=== PATIENT | female | born 1995 | race African-American/Black ===

== ENCOUNTER 2023-01-31 08:43 | Emergency (ER) | payer SELFPAY | END 2023-01-31 08:48 | disposition left against medical advice (07) | DX: Z53.21 Procedure and treatment not carried out due to patient leaving prior to being seen by health care provider (principal) | CPT/HCPCS: 99199 ==

== ENCOUNTER 2024-08-06 15:29 | Outpatient (CLI) | payer OTHER, SELFPAY ==
--- OUTSIDE RECORDS SUMMARY | 2024-08-06 17:14 | XMS_ITS | Clinical Summary ---
Author Organization [facility], formerly [facility] Address [address] [place] [address] Care Team Providers [employer] Foreperson Name Role Phone No, Physician Primary Care Provider [phone] Allergies Active Allergy Reactions Criticality Noted Date Comments Pollen Extracts Cough,Eye irritation,Redness,Headache,Itching,S hortness of breath,Wheezing High 10/26/2006 Medications albuterol HFA (PROVENTIL HFA,VENTOLIN HFA,PROAIR HFA) 90 mcg/actuation inhaler Inhale 2 puffs every 6 (six) hours as needed 5 Active medroxyPROGESTE Mati (PROVERA) 10 mg tabletIndicatio ns:Menorrhagia with regular cycle,Abnormal uterine bleeding (AUB) Take 1 tablet (10 mg total) by mouth daily for 10 days 30 tablet 11 1 Active topiramate (TOPAMAX) 25 mg tablet Take 1 tablet (25 mg total) by mouth 2 (two) times a day 4 Active hydrocortisone 1 % ointment Apply 1 Application topically 3 (three) times a day as needed for rash 4 Active rizatriptan (MAXALT) 5 mg tablet Take 1 tablet (5 mg total) by mouth once as needed 4 Active sertraline (ZOLOFT) 50 mg tablet Take 1.5 tablets (75 mg total) by mouth daily Active buPROPion XL (WELLBUTRIN XL) 300 mg 24 hr tablet Take 1 tablet (300 mg total) by mouth every morning Active traZODone (DESYREL) 50 mg tablet Take 1 tablet (50 mg total) by mouth nightly as needed for sleep Active gabapentin (NEURONTIN) 100 mg capsule Take 1 capsule (100 mg total) by mouth 3 (three) times a day Active OXcarbazepine (TRILEPTAL) 600 mg tablet Take 1 tablet (600 mg total) by mouth 2 (two) times a day Active Active Problems Problem Noted Date Diagnosed Date Chronic migraine w/o aura w/ o status migrainosus, not intractable 05/15/2024 Pseudopapilledema of both optic discs 05/15/2024 Abnormal uterine bleeding (AUB) 05/30/2021 Encounters Date Type Department Care Team Description 05/20/2024 4:41 PM PROFILER OPERATOR - 05/20/2024 11:59 PM PROFILER OPERATOR Hospital Encounter [facility] ([facility]) [address] [place] [phone] Discharge Disposition: Discharge to home or self care 05/20/2024 4:39 PM PROFILER OPERATOR - 05/20/2024 11:59 PM PROFILER OPERATOR Hospital Encounter [facility] ([facility]) [address] [place] [phone] Discharge Disposition: Discharge to home or self care 05/20/2024 4:37 PM PROFILER OPERATOR - 05/20/2024 11:59 PM PROFILER OPERATOR Hospital Encounter [facility] ([facility]) [address] [place] [address] Discharge Disposition: Discharge to home or self care 05/20/2024 4:36 PM PROFILER OPERATOR - 05/20/2024 11:59 PM PROFILER OPERATOR Hospital Encounter [facility] ([facility]) [address] [place] [phone] Discharge Disposition: Discharge to home or self care 05/15/2024 10:52 AM PROFILER OPERATOR - 05/15/2024 11:59 PM PROFILER OPERATOR Hospital Encounter [facility] ([facility]) [address] [place] [phone] Discharge Disposition: Discharge to home or self care 05/15/2024 10:50 AM PROFILER OPERATOR - 05/15/2024 11:59 PM PROFILER OPERATOR Hospital Encounter [facility] ([facility]) [address] [place] [phone] Discharge Disposition: Discharge to home or self care 05/15/2024 10:41 AM PROFILER OPERATOR - 05/15/2024 11:59 PM PROFILER OPERATOR Hospital Encounter [facility] ([facility]) [address] [place] [phone] Discharge Disposition: Discharge to home or self care 05/14/2024 3:30 PM PROFILER OPERATOR Imaging Exam [facility] [address] [place] [address] [address] [place] [phone] 05/14/2024 3:20 PM PROFILER OPERATOR Imaging Exam [facility] [address] [place] [phone] 05/14/2024 3:10 PM PROFILER OPERATOR Imaging Exam [facility] [address] [place] [phone] 05/14/2024 2:30 PM PROFILER OPERATOR Office Visit [facility] [address] [place] [phone] Lenin Lopez MD Chronic migraine w/o aura w/o status migrainosus, not intractable (Primary Dx); Pseudopapilledema of both optic discs from Last 3 Months Medical History Medical History Date Comments Asthma PE (pulmonary thromboembolism) (HCC) 2016 Family History Medical History Relation Name Comments No Known Problems Father No Known Problems Maternal Grandfather No Known Problems Maternal Grandmother Diabetes Mother Heart attack Mother Heart disease Mother Hypertension Mother Stroke Mother No Known Problems Paternal Grandfather No Known Problems Paternal Grandmother Breast cancer Neg Hx Ovarian cancer Neg Hx Uterine cancer Neg Hx Relation Name Status Comments Father Alive Maternal Grandfather Alive Maternal Grandmother Alive Mother Paternal Grandfather Alive Paternal Grandmother Alive Social History Tobacco Use Types Packs/Day Years Used Date Smoking Tobacco: Never Smokeless Tobacco: Never Alcohol Use Standard Drinks/Week Comments Yes 0 (1 standard drink = 0.6 oz pur e alcohol) Comments No Sex and Gender Information Value Date Recorded Sex Assigned at Not on file Legal Sex Female 9:08 PM PROFILER OPERATOR Gender Identity Not on file Sexual Orientation Not on file Obstetrics History Last Filed Vital Signs Vital Sign Reading Time Taken Comments Blood Pressure 112/76 05/26/2021 10:44 AM PROFILER OPERATOR Pulse 76 05/03/2021 8:40 PM PROFILER OPERATOR Temperature 36.8 C (98.2 F) 05/03/2021 3:57 PM PROFILER OPERATOR Respiratory Rate 18 05/03/2021 8:40 PM PROFILER OPERATOR Oxygen Saturation 100% 05/03/2021 8:40 PM PROFILER OPERATOR Inhaled Oxygen Concentration - - Weight 106.6 kg (235 lb) 05/26/2021 10:44 AM PROFILER OPERATOR Height 180.3 cm (5' 10.98 ) 05/26/2021 10:44 AM PROFILER OPERATOR Body Mass Index 32.79 05/26/2021 10:44 AM PROFILER OPERATOR Plan of Treatment Health Maintenance Due Date Last Done Comments Cervical Cancer Screening 1995 Depression Screening 1995 Hepatitis C Screening 1995 Varicella Vaccines (1 of 2 - 13+ 2-dose series) 08/20/2008 Hepatitis B Screening 08/20/2013 Regular Well Visit/Exam 18-64 08/20/2013 Pneumococcal vaccine <65 (1 of 2 - PCV) 08/20/2014 Influenza Vaccine (#1) 2024 DTaP/Tdap/Td Vaccine (2 - Td or Tdap) 10/03/2029 10/04/2019 HPV Vaccines Aged Out No longer eligi ble based on patient's age to complete this topic Procedures Procedure Name Priority Date/Time Associated Diagnosis Comments NEURO CT OUTSIDE REFERENCE Routine 05/20/2024 4:41 PM PROFILER OPERATOR NEURO MR OUTSIDE REFERENCE Routine 05/20/2024 4:39 PM PROFILER OPERATOR XR TRANSFER OF OUTSIDE FILMS Routine 05/20/2024 4:37 PM PROFILER OPERATOR NEURO MR OUTSIDE REFERENCE Routine 05/20/2024 4:36 PM PROFILER OPERATOR NEURO MR OUTSIDE REFERENCE Routine 05/15/2024 10:52 AM PROFILER OPERATOR NEURO MR OUTSIDE REFERENCE Routine 05/15/2024 10:50 AM PROFILER OPERATOR NEURO MR OUTSIDE REFERENCE Routine 05/15/2024 10:41 AM PROFILER OPERATOR OCT, OPTIC NERVE - OU - BOTH EYES Routine 05/14/2024 3:59 PM PROFILER OPERATOR Pseudopapilledema of both optic discs OCT, RETINA - OU - BOTH EYES Routine 05/14/2024 3:59 PM PROFILER OPERATOR Pseudopapilledema of both optic discs FUNDUS PHOTOS/FAF - OU - BOTH EYES Routine 05/14/2024 2:30 PM PROFILER OPERATOR Pseudopapilledema of both optic discs NEVAREZ VISUAL FIELD - OU - BOTH EYES Routine 05/14/2024 2:30 PM PROFILER OPERATOR Pseudopapilledema of both optic discs from Last 3 Months Results * Neuro CT Outside Reference (05/20/2024 4:41 PM PROFILER OPERATOR) Impressions RAD_PACS_[facility] - 05/20/2024 4:41 PM PROFILER OPERATOR These images are for Reference purposes only and have not been reviewed by [facility]. There will be no report generated by a [facility] Radiologist. Narrative RAD_PACS_BJ - 05/20/2024 4:41 PM PROFILER OPERATOR EXAMINATION: Images For Reference Purposes Only Lenin Lopez MD IMG CT PROCEDURES Fi nal Result [email or web address] * Neuro MR Outside Reference (05/20/2024 4:39 PM PROFILER OPERATOR) Impressions RAD_PACS_[facility] - 05/20/2024 4:39 PM PROFILER OPERATOR These images are for Reference purposes only and have not been reviewed by [facility]. There will be no report generated by a [facility] Radiologist. Narrative RAD_PACS_BJ - 05/20/2024 4:39 PM PROFILER OPERATOR EXAMINATION: Images For Reference Purposes Only Lenin Lopez MD IMG MRI PROCEDURES F inal Result Performing Organization Address [facility] de Phone Number [email or web address] * XR Outside Reference (05/20/2024 4:37 PM PROFILER OPERATOR) Impressions [facility] - 05/20/2024 4:37 PM PROFILER OPERATOR These images are for Reference purposes only and have not been reviewed by [facility]. There will be no report generated by a [facility] Radiologist. Narrative [facility] - 05/20/2024 4:37 PM PROFILER OPERATOR EXAMINATION: Images For Reference Purposes Only Lenin Lopez MD IMG XR PROCEDURES Fi nal Result Performing Organization Address [facility] [place] Phone Number [email or web address] * Neuro MR Outside Reference (05/20/2024 4:36 PM PROFILER OPERATOR) Impressions [facility] - 05/20/2024 4:36 PM PROFILER OPERATOR These images are for Reference purposes only and have not been reviewed by [facility]. There will be no report generated by a [facility] Radiologist. Narrative [facility] - 05/20/2024 4:36 PM PROFILER OPERATOR EXAMINATION: Images For Reference Purposes Only Lenin Lopez MD IMG MRI PROCEDURES F inal Result Performing Organization Address [facility] de Phone Number [email or web address] * Neuro MR Outside Reference (05/15/2024 10:52 AM PROFILER OPERATOR) Impressions [facility] - 05/15/2024 10:52 AM PROFILER OPERATOR These images are for Reference purposes only and have not been reviewed by [facility]. There will be no report generated by a [facility] Radiologist. Narrative [facility] - 05/15/2024 10:52 AM PROFILER OPERATOR EXAMINATION: Images For Reference Purposes Only Lenin Lopez MD IMG MRI PROCEDURES F inal Result Performing Organization Address [facility] de Phone Number [email or web address] * Neuro MR Outside Reference (05/15/2024 10:50 AM PROFILER OPERATOR) Impressions RADHUGH - 05/15/2024 10:50 AM PROFILER OPERATOR These images are for Reference purposes only and have not been reviewed by [facility]. There will be no report generated by a [facility] Radiologist. Narrative RAD_PACAlisa_WALTER - 05/15/2024 10:50 AM PROFILER OPERATOR EXAMINATION: Images For Reference Purposes Only Lenin Lopez MD [facility] MRI PROCEDURES F inal Result Performing Organization Address [facility] de Phone Number [email or web address] * Neuro MR Outside Reference (05/15/2024 10:41 AM PROFILER OPERATOR) Impressions RADITZ_WALTER - 05/15/2024 10:41 AM PROFILER OPERATOR These images are for Reference purposes only and have not been reviewed by [facility]. There will be no report generated by a [facility] Radiologist. Narrative RAD_PACAlisa_DREW - 05/15/2024 10:41 AM PROFILER OPERATOR EXAMINATION: Images For Reference Purposes Only Lenin Lopez MD IMG MRI PROCEDURES F inal Result Performing Organization Address [facility] de Phone Number [email or web address] * OCT, Optic Nerve - OU - Both Eyes (05/14/2024 3:59 PM PROFILER OPERATOR) RNFL OS 95 micrometers CONTINUUM RNFL OD 99 micrometers CONTINUUM Anatomical Region Laterality Modality Head Other Narrative 05/15/2024 9:42 AM PROFILER OPERATOR Right Eye Reliability was good. Average RNFL thickness 99 micrometers. Left Eye Reliability was good. Average RNFL thickness 95 micrometers. Notes No signs of thinning or thickening both eyes (OU) Dali Wilkerson MD OPHTH TOMOGRAPHY Final Resu lt * OCT, Retina - OU - Both Eyes (05/14/2024 3:59 PM PROFILER OPERATOR) Central Macular Thickness OS 266 mircometers CONTINUUM Central Macular Thickness OD 270 micrometers CONTINUUM Anatomical Region Laterality Modality Head Other Narrative 05/15/2024 9:42 AM PROFILER OPERATOR Right Eye Quality was good. Macular thickness was 270 micrometers. Left Eye Quality was good. Macular thickness was 266 mircometers. Notes Normal OCT mac OU GCC without thinning OU; 81/80 us Dali Wilkerson MD OPH TOMOGRAPHY Final Resu lt * Fundus Photos/FAF - OU - Both Eyes (05/14/2024 2:30 PM PROFILER OPERATOR) Anatomical Region Laterality Modality Head Fundus Photograp hy Narrative 05/15/2024 9:42 AM PROFILER OPERATOR Right Eye Quality was good. Left Eye Quality was good. Notes OD crowded optic disc with no edema or pallor, temporal retinal tear with surrounding laser barricade OS crowded optic discs with no edema or pallor Fundus auto fluorescence photography showed no evidence of optic disc drusen in either eye. us Dali Wilkerson MD OPH PHOTOGRAPHY Final Res ult * Nevarez Visual Field - OU - Both Eyes (05/14/2024 2:30 PM PROFILER OPERATOR) Pattern Deviation OS 1.73 CONTINUUM Pattern Deviation OD 1.17 CONTINUUM Mean Deviation OS -1.06 CONTINUUM Mean Deviation OD -1.71 CONTINUUM Anatomical Region Laterality Modality Head Other Narrative 05/15/2024 9:41 AM PROFILER OPERATOR Right Eye Fixation was good. Cooperation was good. Reliability was good. Mean Deviation was -1.71. Pattern Deviation was 1.17. Left Eye Fixation was good. Cooperation was good. Reliability was good. Mean Deviation was -1.06. Pattern Deviation was 1.73. Notes Full OU us Dali Wilkerson MD OPH VISUAL FIELD Final Re sult from Last 3 Months Insurance [facility] [employer] Care Teams [employer] Foreperson Relationship Specialty Start Date End Date No, Physician PCP - General 10/05/19
--- OUTSIDE RECORDS SUMMARY | 2024-08-06 17:14 | XMS_ITS | Patient Health Summary ---
Author Organization [facility] Address [address] [place] [address] Care Team Providers Care Major Gifts Officer Name Role Phone Zee Cruz IAN-OILER BANDER Primary Care Provider + Note from [facility],non-owned Affiliates and Associated Physician Practices is amultiple site organization consisting of ambulatory clinics and hospital sitesin [place], [place], [place] and [place]. This disclosure is being madepursuant to the Care Everywhere program and may not contain all information available regarding this patient. Last updated 18.[facility] Allergies * Seasonal(Cough,Eye Discomfort,Eye Itching,Eye Redness,Headache,Itching, Shortness of Breath,Wheezing) -High Criticality Medications * Be aware that medications may not be up to date on this document. Alwaysverify current medications with the patient. * rizatriptan (Maxalt) 5 MG tablet(Started 09/26/2023) TAKE 1 TABLET BY MOUTH 1 TIME AT EARLY ONSET OF MIGRAINE. MAY REPEAT 1 TIME AFTER 2 HOURS NEEDED 11 refills by 09/25/2024 * fluticasone propionate (Flonase) 50 MCG/ACT nasal spray(Started 01/05/2023) SHAKE LIQUID AND USE 1 SPRAY IN EACH NOSTRIL TWICE DAILY * hydrocortisone (Hytone) 1 % ointment(Started 09/17/2023) APPLY TOPICALLY TO THE AFFECTED AREA THREE TIMES DAILY NEEDED FOR RASH * Mirena, 52 MG, 20 MCG/DAY IUD(Started 06/11/2023) * acetaZOLAMIDE ER 12hr (Diamox Sequel) 500 MG capsule(Started 01/01/2024) Take 1 (one) capsule by mouth 2 times daily 11 refills by 12/31/2024 * doxycycline hyclate 100 MG tablet(Started 02/07/2024) * buPROPion XL 24hr (Wellbutrin-XL) 300 MG tablet 1 tablet in the morning Orally Once a day for 90 days * sertraline (Zoloft) 50 MG tablet 1.5 tablet Oral Once a day for 90 days * traZODone (Desyrel) 50 MG tablet(Started 10/03/2023) 1 tablet at bedtime as needed Oral Once a day for 90 days * albuterol HFA (Proventil; Ventolin; Proair) 108 (90 Base) MCG/ACT inhaler (Started 03/04/2024) * Levonorgestrel (MIRENA, 52 MG, IU)(Started 10/03/2023) MIRENA 21 MCG/24 HR (UP TO 8 YEARS) 52 MG INTRAUTERINE DEVICE * valACYclovir (Valtrex) 500 MG tablet(Started 10/03/2023) Oral * fluticasone diskus (Flovent Diskus) 50 MCG/ACT inhaler(Started 10/03/2023) Inhalation * topiramate (Topamax) 25 MG tablet(Started 04/14/2024) TAKE 1 TABLET BY MOUTH TWICE DAILY 3 refills by 04/14/2025 Active Problems No known active problems Social History Tobacco Use Types Packs/Day Years Used Date Smoking Tobacco: Never Smokeless Tobacco: Never Tobacco Cessation:Counseling Given: Not Answered Alcohol Use Standard Drinks/Week Comments Yes 0 (1 standard drink = 0.6 oz pur e alcohol) Occassionally AUDIT-C Answer Date Recorded Q1: How often do you have a drink containing alc ohol? 2-4 times a month 12/28/2023 Average Number of Drinks Not on file 024 Frequency of Binge Drinking Not on file 12/03 Sex and Gender Information Value Date Recorded Sex Assigned at Female 12/17/2023 7:36 AM CDT Gender Identity Female 12/17/2023 7:36 AM CDT Sexual Orientation Straight 12/17/2023 7: 36 AM CDT Last Filed Vital Signs Vital Sign Reading Time Taken Comments Blood Pressure 154/95 01/01/2024 6:54 AM CDT Pulse 65 01/01/2024 6:54 AM CDT Temperature 36.4 C (97.6 F) 01/01/2024 6:54 AM CDT Respiratory Rate 18 01/01/2024 6:54 AM CDT Oxygen Saturation 100% 01/01/2024 6:54 AM CDT Inhaled Oxygen Concentration - - Weight 86.2 kg (190 lb) 01/01/2024 6:54 AM CDT Height 180.3 cm (5' 11 ) 01/01/2024 6:54 AM CDT Body Mass Index 26.5 01/01/2024 6:54 AM CDT Procedures * OPTIC NERVE ANALYSIS OCT(Performed 03/12/2024) Performed for IIH (idiopathic intracranial hypertension) * NANCE AUTO VISUAL FIELD EXTENDED(Performed 03/12/2024) Performed for IIH (idiopathic intracranial hypertension) * FUNDUS PHOTO BOTH EYES(Performed 02/20/2024) Performed for IIH (idiopathic intracranial hypertension) * RETINAL ANALYSIS OCT(Performed 02/20/2024) Performed for IIH (idiopathic intracranial hypertension) * NANCE AUTO VISUAL FIELD EXTENDED(Performed 02/20/2024) Performed for Papilledema * MRI ANGIO BRAIN VENOUS WWO CONT(Performed 02/09/2024) Performed for Papilledema * MRI BRAIN WWO CONTRAST(Performed 02/09/2024) Performed for Papilledema * MRI ORBITS OR FACE WWO CONTRAST(Performed 02/09/2024) Performed for Papilledema * CREATININE - POCT INTERFACED(Performed 02/09/2024) * CBC W AUTO DIFFERENTIAL(Performed 01/01/2024) * COMPREHENSIVE METABOLIC PANEL(Performed 01/01/2024) * CELL COUNT W DIFFERENTIAL CSF(Performed 12/28/2023) Performed for Papilledema * PROTEIN CSF(Performed 12/28/2023) Performed for Papilledema * GLUCOSE CSF(Performed 12/28/2023) Performed for Papilledema * FL LUMBAR PUNCTURE(Performed 12/28/2023) Performed for Papilledema * HCG URINE QUALITATIVE - POCT (IP) INTERFACED(Performed 12/28/2023) * HCG URINE QUAL POCT NOTIFICATION(Performed 12/28/2023) Performed for Preop examination * PROPHYLAXIS RETINA DETACH PHOTOCOAG OS(Performed 12/21/2023) 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 * PROPHYLAXIS RETINA DETACH PHOTOCOAG OD(Performed 12/13/2023) 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, Lattice degeneration of peripheral retina, bilateral * RETINAL ANALYSIS OCT(Performed 12/13/2023) Performed for Retinal tear of right eye * MRI ORBITS OR FACE WWO CONTRAST(Performed 10/27/2023) Performed for Trigeminal neuralgia, Other complicated headache syndrome * MRI ANGIO BRAIN ARTERIAL WO CONT(Performed 10/27/2023) Performed for Trigeminal neuralgia, Other complicated headache syndrome * MRI BRAIN WWO CONTRAST(Performed 10/27/2023) Performed for Trigeminal neuralgia, Other complicated headache syndrome * CREATININE - POCT INTERFACED(Performed 10/27/2023) * CT HEAD WO CONTRAST(Performed 06/05/2022) Performed for Other complicated headache syndrome * XR LUMBAR SPINE 2 OR 3VW(Performed 04/13/2022) Performed for Low back pain, unspecified back pain laterality, unspecified chronicity, unspecified whether sciatica present Results * OPTIC NERVE ANALYSIS OCT (03/12/2024 9:18 AM CDT) Anatomical Region Laterality Modality Head External-Camera Photography Narrative 03/12/2024 10:44 AM CDT Images from the original result were not included. Justin Palma MD OPHTHALMOLOGY SCHED ORD W PACS * NANCE AUTO VISUAL FIELD EXTENDED (03/12/2024 9:18 AM CDT) Anatomical Region Laterality Modality Head External-Camera Photography Justin Palma MD OPHTHALMOLOGY SCHED ORD W PACS * FUNDUS PHOTO BOTH EYES (02/20/2024 12:32 PM CDT) Anatomical Region Laterality Modality Head External-Camera Photography Narrative 02/20/2024 12:44 PM CDT Images from the original result were not included. Fundus photos: No papilledema, Len's lines, high water qu[place] seen OU. Retinopexy seen far temporal periphery OD. Justin Palma MD OPHTHALMOLOGY SCHED ORD W PACS * RETINAL ANALYSIS OCT (02/20/2024 12:32 PM CDT) Anatomical Region Laterality Modality Head External-Camera Photography Narrative 02/20/2024 12:59 PM CDT Images from the original result were not included. OCT [place] Nerve - no significant swelling/edema or thinning of RNFL OU. Avg 102 OD, 103 OS. OCT [place] Macula - normal retinal layers without disruption OU Justin Palma MD OPHTHALMOLOGY SCHED ORD W PACS * NANCE AUTO VISUAL FIELD EXTENDED (02/20/2024 10:20 AM CDT) Anatomical Region Laterality Modality Head External-Camera Photography Narrative 02/20/2024 1:12 PM CDT Images from the original result were not included. HVF 24-2 02/20/24 Superonasal defect OD. Full field OS. Good reliability OU. Foveal threshold 36 dB OD, 37 dB OS. VFI 93% OD, 97% OS. MD -2.85 OD, -1.95 OS. Justin Palma MD OPHTHALMOLOGY SCHED ORD W PACS * MRI ANGIO BRAIN VENOUS WWO CONT (02/09/2024 2:00 PM CDT) Anatomical Region Laterality Modality Head Magnetic Resonan ce 02/11/2024 1:30 PM CDT Impressions 02/11/2024 10:08 PM CDT IMPRESSION: Compared to the prior MRI from 10/27/2023: 1.No significant change in the scan features compared to the prior. 2.No evidence of acute intracranial findings or abnormal enhancement. 3.No acute MRI findings are identified in the orbits. 4.The right transverse and sigmoid sinuses and the right internal jugular vein are dominant. The left transverse and sigmoid sinuses and the left internal jugular vein are nondominant and small in caliber. There is mild to moderate stenosis of the proximal and distal aspects of the nondominant left transverse sinus. 5.Considering the recent lumbar puncture demonstrating elevated intracranial hypertension, patient's symptoms, and the presence of low-lying cerebellar tonsils, and the presence of reduced caliber of the left transverse sinus with mild proximal and distal stenosis, the overall findings are concerning for idiopathic intracranial hypertension, (IIH). Clinical correlation is recommended. 6.No evidence of dural venous sinus thrombosis. 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 Technologist Note: None. Additional: None. 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 2.MRI of the orbits was performed prior to and following the uneventful administration of 10 mL intravenous GADAVIST contrast according to standard protocol. 3.MRV of the head was performed utilizing contrast enhanced time-resolved technique after the uneventful administration of 10 mL GADAVIST intravenous gadolinium contrast. COMPARISON: MRI of the brain, orbits, and MRV from 10/27/2023. FINDINGS: Brain: Small linear focus of susceptibility artifacts in the medial anterior right parietal region, (series 9, image 36), correlates with a small developmental venous anomaly, a normal variant. Otherwise, no evidence of acute or chronic hemorrhage is identified. No evidence of acute cerebral infarction is seen. The ventricles are of stable size, shape, and morphology. A tiny septum pellucidum is present. No mass effect or midline shift is seen. Trace periventricular white matter FLAIR hyperintensity is a nonspecific finding. A small developmental venous anomaly is noted in the medial anterior parasagittal right parietal lobe, a normal variant, grossly similar to the prior. There is a smaller developmental venous anomaly in the left cerebellar hemisphere posterior lateral aspect. No enhancing lesions are otherwise identified. The pituitary height measures approximately 5.4 mm, within normal limits. The corpus callosum and sella appear normal and stable compared to the prior. Borderline low-lying cerebellar tonsils approximately 2 mm below the level of the foramen magnum, resulting in mild crowding at the level of the foramen magnum, likely representing mild cerebellar ectopia, grossly unchanged from prior. The posterior fossa, brainstem, and craniocervical junction appear otherwise grossly unremarkable. The visualized portions of the mastoids appear normal. Normal flow voids are demonstrated in the carotid arteries and basilar artery. The calvarium and visualized cervical spine appear normal. Orbits: The globes and extraocular muscles appear normal. The lacrimal glands appear normal. Mildly dilated optic nerve sheaths. The optic nerves are symmetric in size and signal. No abnormal enhancement is identified in either optic nerve. The optic chiasm and suprasellar cistern appear normal. Meckel's cave and the cavernous sinuses appear normal. There is a mucous retention cyst in the left maxillary sinus, grossly similar to prior. There is a smaller mucous retention cyst in the right maxillary sinus, grossly similar or slightly decreased compared to prior. Trace mucosal thickening in the ethmoid air cells. Mild hypertrophy of the inferior turbinates, right more than left. There is a small small focus of T2 hyperintensity adjacent to the left middle turbinate, (series 12, image 5), and appears abutting the nasal septum and the inferior turbinate as well. Venographic findings: The right transverse and sigmoid sinuses and the right internal jugular vein are dominant. The left transverse and sigmoid sinuses and the left internal jugular vein are nondominant and small in caliber. There is mild to moderate stenosis of the proximal and distal aspects of the nondominant left transverse sinus. The dural sinuses appear otherwise grossly normal without evidence of thrombosis. The internal cerebral veins, veins of J Luis, and visible portions of the internal jugular veins appear otherwise grossly normal without evidence of thrombosis. 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 Technologist Note: None. Additional: None. 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 2.MRI of the orbits was performed prior to and following the uneventful administration of 10 mL intravenous GADAVIST contrast according tostandard protocol. 3.MRV of the head was performed utilizing contrast enhancedtime-resolved technique after the uneventful administration of 10 mL GADAVISTintravenous gadolinium contrast. COMPARISON: MRI of the brain, orbits, and MRV from 10/27/2023. FINDINGS: Brain: Small linear focus of susceptibility artifacts in the medial anteriorright parietal region, (series 9, image 36), correlates with a small developmental venous anomaly, a normal variant. Otherwise, no evidenceof acute or chronic hemorrhage is identified. No evidence of acute cerebral infarction is seen. The ventricles are of stable size, shape, and morphology. A tiny septum pellucidum is present. No mass effect ormidline shift is seen. Trace periventricular white matter FLAIR hyperintensity nicholas nonspecific finding. A small developmental venous anomaly is noted inthe medial anterior parasagittal right parietal lobe, a normal variant,grossly similar to the prior. There is a smaller developmental venous anomaly in the left cerebellar hemisphere posterior lateral aspect. No enhancing lesions are otherwise identified. The pituitary height measures approximately 5.4 mm, within normal limits. The corpus callosum andsella appear normal and stable compared to the prior. Borderline low-lying cerebellar tonsils approximately 2 mm below the level of the foramen magnum, resulting in mild crowding at the level of the foramen magnum, likely representing mild cerebellar ectopia, grossly unchanged fromprior. The posterior fossa, brainstem, and craniocervical junction appear otherwise grossly unremarkable. The visualized portions of the mastoids appear normal. Normal flow voids are demonstrated in the carotid arteries and basilar artery. Thecalvarium and visualized cervical spine appear normal. Orbits: The globes and extraocular muscles appear normal. The lacrimal glands appear normal. Mildly dilated optic nerve sheaths. The optic nerves are symmetric in size and signal. No abnormal enhancement is identified in either optic nerve. The optic chiasm and suprasellar cistern appearnormal. Meckel's cave and the cavernous sinuses appear normal. There is a mucous retention cyst in the left maxillary sinus, grossly similar to prior. There is a smaller mucous retention cyst in the right maxillary sinus, grossly similar or slightly decreased compared toprior. Trace mucosal thickening in the ethmoid air cells. Mild hypertrophy ofthe inferior turbinates, right more than left. There is a small small focusof T2 hyperintensity adjacent to the left middle turbinate, (series 12,image 5), and appears abutting the nasal septum and the inferior turbinate as well. Venographic findings: The right transverse and sigmoid sinuses and the right internal jugular vein are dominant. The left transverse and sigmoid sinuses and the left internal jugular vein are nondominant and small in caliber. There ismild to moderate stenosis of the proximal and distal aspects of thenondominant left transverse sinus. The dural sinuses appear otherwise grossly normal without evidence of thrombosis. The internal cerebral veins, veins of J Luis, and visible portions of the internal jugular veins appearotherwise grossly normal without evidence of thrombosis. IMPRESSION: Compared to the prior MRI from 10/27/2023: 1.No significant change in the scan features compared to the prior. 2.No evidence of acute intracranial findings or abnormal enhancement. 3.No acute MRI findings are identified in the orbits. 4.The right transverse and sigmoid sinuses and the right internaljugular vein are dominant. The left transverse and sigmoid sinuses and the left internal jugular vein are nondominant and small in caliber. There ismild to moderate stenosis of the proximal and distal aspects of thenondominant left transverse sinus. 5.Considering the recent lumbar puncture demonstrating elevated intracranial hypertension, patient's symptoms, and the presence of low-lying cerebellar tonsils, and the presence of reduced caliber of the left transverse sinus with mild proximal and distal stenosis, theoverall findings are concerning for idiopathic intracranial hypertension, (IIH). Clinical correlation is recommended. 6.No evidence of dural venous sinus thrombosis. > Interpreting Provider: Suresh Holt MD on 02/11/2024 10:08 PM Justin Palma MD MR ORDERABLES * MRI BRAIN WWO CONTRAST (02/09/2024 1:55 PM CDT) Only the most recent of2 resultswithin the time period is included. Anatomical Region Laterality Modality Head Magnetic Resonan ce 02/11/2024 1:30 PM CDT Impressions 02/11/2024 10:08 PM CDT IMPRESSION: Compared to the prior MRI from 10/27/2023: 1.No significant change in the scan features compared to the prior. 2.No evidence of acute intracranial findings or abnormal enhancement. 3.No acute MRI findings are identified in the orbits. 4.The right transverse and sigmoid sinuses and the right internal jugular vein are dominant. The left transverse and sigmoid sinuses and the left internal jugular vein are nondominant and small in caliber. There is mild to moderate stenosis of the proximal and distal aspects of the nondominant left transverse sinus. 5.Considering the recent lumbar puncture demonstrating elevated intracranial hypertension, patient's symptoms, and the presence of low-lying cerebellar tonsils, and the presence of reduced caliber of the left transverse sinus with mild proximal and distal stenosis, the overall findings are concerning for idiopathic intracranial hypertension, (IIH). Clinical correlation is recommended. 6.No evidence of dural venous sinus thrombosis. 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 Technologist Note: None. Additional: None. 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 2.MRI of the orbits was performed prior to and following the uneventful administration of 10 mL intravenous GADAVIST contrast according to standard protocol. 3.MRV of the head was performed utilizing contrast enhanced time-resolved technique after the uneventful administration of 10 mL GADAVIST intravenous gadolinium contrast. COMPARISON: MRI of the brain, orbits, and MRV from 10/27/2023. FINDINGS: Brain: Small linear focus of susceptibility artifacts in the medial anterior right parietal region, (series 9, image 36), correlates with a small developmental venous anomaly, a normal variant. Otherwise, no evidence of acute or chronic hemorrhage is identified. No evidence of acute cerebral infarction is seen. The ventricles are of stable size, shape, and morphology. A tiny septum pellucidum is present. No mass effect or midline shift is seen. Trace periventricular white matter FLAIR hyperintensity is a nonspecific finding. A small developmental venous anomaly is noted in the medial anterior parasagittal right parietal lobe, a normal variant, grossly similar to the prior. There is a smaller developmental venous anomaly in the left cerebellar hemisphere posterior lateral aspect. No enhancing lesions are otherwise identified. The pituitary height measures approximately 5.4 mm, within normal limits. The corpus callosum and sella appear normal and stable compared to the prior. Borderline low-lying cerebellar tonsils approximately 2 mm below the level of the foramen magnum, resulting in mild crowding at the level of the foramen magnum, likely representing mild cerebellar ectopia, grossly unchanged from prior. The posterior fossa, brainstem, and craniocervical junction appear otherwise grossly unremarkable. The visualized portions of the mastoids appear normal. Normal flow voids are demonstrated in the carotid arteries and basilar artery. The calvarium and visualized cervical spine appear normal. Orbits: The globes and extraocular muscles appear normal. The lacrimal glands appear normal. Mildly dilated optic nerve sheaths. The optic nerves are symmetric in size and signal. No abnormal enhancement is identified in either optic nerve. The optic chiasm and suprasellar cistern appear normal. Meckel's cave and the cavernous sinuses appear normal. There is a mucous retention cyst in the left maxillary sinus, grossly similar to prior. There is a smaller mucous retention cyst in the right maxillary sinus, grossly similar or slightly decreased compared to prior. Trace mucosal thickening in the ethmoid air cells. Mild hypertrophy of the inferior turbinates, right more than left. There is a small small focus of T2 hyperintensity adjacent to the left middle turbinate, (series 12, image 5), and appears abutting the nasal septum and the inferior turbinate as well. Venographic findings: The right transverse and sigmoid sinuses and the right internal jugular vein are dominant. The left transverse and sigmoid sinuses and the left internal jugular vein are nondominant and small in caliber. There is mild to moderate stenosis of the proximal and distal aspects of the nondominant left transverse sinus. The dural sinuses appear otherwise grossly normal without evidence of thrombosis. The internal cerebral veins, veins of J Luis, and visible portions of the internal jugular veins appear otherwise grossly normal without evidence of thrombosis. 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 Technologist Note: None. Additional: None. 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 2.MRI of the orbits was performed prior to and following the uneventful administration of 10 mL intravenous GADAVIST contrast according tostandard protocol. 3.MRV of the head was performed utilizing contrast enhancedtime-resolved technique after the uneventful administration of 10 mL GADAVISTintravenous gadolinium contrast. COMPARISON: MRI of the brain, orbits, and MRV from 10/27/2023. FINDINGS: Brain: Small linear focus of susceptibility artifacts in the medial anteriorright parietal region, (series 9, image 36), correlates with a small developmental venous anomaly, a normal variant. Otherwise, no evidenceof acute or chronic hemorrhage is identified. No evidence of acute cerebral infarction is seen. The ventricles are of stable size, shape, and morphology. A tiny septum pellucidum is present. No mass effect ormidline shift is seen. Trace periventricular white matter FLAIR hyperintensity nicholas nonspecific finding. A small developmental venous anomaly is noted inthe medial anterior parasagittal right parietal lobe, a normal variant,grossly similar to the prior. There is a smaller developmental venous anomaly in the left cerebellar hemisphere posterior lateral aspect. No enhancing lesions are otherwise identified. The pituitary height measures approximately 5.4 mm, within normal limits. The corpus callosum andsella appear normal and stable compared to the prior. Borderline low-lying cerebellar tonsils approximately 2 mm below the level of the foramen magnum, resulting in mild crowding at the level of the foramen magnum, likely representing mild cerebellar ectopia, grossly unchanged fromprior. The posterior fossa, brainstem, and craniocervical junction appear otherwise grossly unremarkable. The visualized portions of the mastoids appear normal. Normal flow voids are demonstrated in the carotid arteries and basilar artery. Thecalvarium and visualized cervical spine appear normal. Orbits: The globes and extraocular muscles appear normal. The lacrimal glands appear normal. Mildly dilated optic nerve sheaths. The optic nerves are symmetric in size and signal. No abnormal enhancement is identified in either optic nerve. The optic chiasm and suprasellar cistern appearnormal. Meckel's cave and the cavernous sinuses appear normal. There is a mucous retention cyst in the left maxillary sinus, grossly similar to prior. There is a smaller mucous retention cyst in the right maxillary sinus, grossly similar or slightly decreased compared toprior. Trace mucosal thickening in the ethmoid air cells. Mild hypertrophy ofthe inferior turbinates, right more than left. There is a small small focusof T2 hyperintensity adjacent to the left middle turbinate, (series 12,image 5), and appears abutting the nasal septum and the inferior turbinate as well. Venographic findings: The right transverse and sigmoid sinuses and the right internal jugular vein are dominant. The left transverse and sigmoid sinuses and the left internal jugular vein are nondominant and small in caliber. There ismild to moderate stenosis of the proximal and distal aspects of thenondominant left transverse sinus. The dural sinuses appear otherwise grossly normal without evidence of thrombosis. The internal cerebral veins, veins of J Luis, and visible portions of the internal jugular veins appearotherwise grossly normal without evidence of thrombosis. IMPRESSION: Compared to the prior MRI from 10/27/2023: 1.No significant change in the scan features compared to the prior. 2.No evidence of acute intracranial findings or abnormal enhancement. 3.No acute MRI findings are identified in the orbits. 4.The right transverse and sigmoid sinuses and the right internaljugular vein are dominant. The left transverse and sigmoid sinuses and the left internal jugular vein are nondominant and small in caliber. There ismild to moderate stenosis of the proximal and distal aspects of thenondominant left transverse sinus. 5.Considering the recent lumbar puncture demonstrating elevated intracranial hypertension, patient's symptoms, and the presence of low-lying cerebellar tonsils, and the presence of reduced caliber of the left transverse sinus with mild proximal and distal stenosis, theoverall findings are concerning for idiopathic intracranial hypertension, (IIH). Clinical correlation is recommended. 6.No evidence of dural venous sinus thrombosis. > Interpreting Provider: Suresh Holt MD on 02/11/2024 10:08 PM Justin Palma MD MR ORDERABLES * MRI ORBITS OR FACE WWO CONTRAST (02/09/2024 1:54 PM CDT) Only the most recent of2 resultswithin the time period is included. Anatomical Region Laterality Modality Head Magnetic Resonan ce 02/11/2024 1:30 PM CDT Impressions 02/11/2024 10:08 PM CDT IMPRESSION: Compared to the prior MRI from 10/27/2023: 1.No significant change in the scan features compared to the prior. 2.No evidence of acute intracranial findings or abnormal enhancement. 3.No acute MRI findings are identified in the orbits. 4.The right transverse and sigmoid sinuses and the right internal jugular vein are dominant. The left transverse and sigmoid sinuses and the left internal jugular vein are nondominant and small in caliber. There is mild to moderate stenosis of the proximal and distal aspects of the nondominant left transverse sinus. 5.Considering the recent lumbar puncture demonstrating elevated intracranial hypertension, patient's symptoms, and the presence of low-lying cerebellar tonsils, and the presence of reduced caliber of the left transverse sinus with mild proximal and distal stenosis, the overall findings are concerning for idiopathic intracranial hypertension, (IIH). Clinical correlation is recommended. 6.No evidence of dural venous sinus thrombosis. 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 Technologist Note: None. Additional: None. 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 2.MRI of the orbits was performed prior to and following the uneventful administration of 10 mL intravenous GADAVIST contrast according to standard protocol. 3.MRV of the head was performed utilizing contrast enhanced time-resolved technique after the uneventful administration of 10 mL GADAVIST intravenous gadolinium contrast. COMPARISON: MRI of the brain, orbits, and MRV from 10/27/2023. FINDINGS: Brain: Small linear focus of susceptibility artifacts in the medial anterior right parietal region, (series 9, image 36), correlates with a small developmental venous anomaly, a normal variant. Otherwise, no evidence of acute or chronic hemorrhage is identified. No evidence of acute cerebral infarction is seen. The ventricles are of stable size, shape, and morphology. A tiny septum pellucidum is present. No mass effect or midline shift is seen. Trace periventricular white matter FLAIR hyperintensity is a nonspecific finding. A small developmental venous anomaly is noted in the medial anterior parasagittal right parietal lobe, a normal variant, grossly similar to the prior. There is a smaller developmental venous anomaly in the left cerebellar hemisphere posterior lateral aspect. No enhancing lesions are otherwise identified. The pituitary height measures approximately 5.4 mm, within normal limits. The corpus callosum and sella appear normal and stable compared to the prior. Borderline low-lying cerebellar tonsils approximately 2 mm below the level of the foramen magnum, resulting in mild crowding at the level of the foramen magnum, likely representing mild cerebellar ectopia, grossly unchanged from prior. The posterior fossa, brainstem, and craniocervical junction appear otherwise grossly unremarkable. The visualized portions of the mastoids appear normal. Normal flow voids are demonstrated in the carotid arteries and basilar artery. The calvarium and visualized cervical spine appear normal. Orbits: The globes and extraocular muscles appear normal. The lacrimal glands appear normal. Mildly dilated optic nerve sheaths. The optic nerves are symmetric in size and signal. No abnormal enhancement is identified in either optic nerve. The optic chiasm and suprasellar cistern appear normal. Meckel's cave and the cavernous sinuses appear normal. There is a mucous retention cyst in the left maxillary sinus, grossly similar to prior. There is a smaller mucous retention cyst in the right maxillary sinus, grossly similar or slightly decreased compared to prior. Trace mucosal thickening in the ethmoid air cells. Mild hypertrophy of the inferior turbinates, right more than left. There is a small small focus of T2 hyperintensity adjacent to the left middle turbinate, (series 12, image 5), and appears abutting the nasal septum and the inferior turbinate as well. Venographic findings: The right transverse and sigmoid sinuses and the right internal jugular vein are dominant. The left transverse and sigmoid sinuses and the left internal jugular vein are nondominant and small in caliber. There is mild to moderate stenosis of the proximal and distal aspects of the nondominant left transverse sinus. The dural sinuses appear otherwise grossly normal without evidence of thrombosis. The internal cerebral veins, veins of J Luis, and visible portions of the internal jugular veins appear otherwise grossly normal without evidence of thrombosis. 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 Technologist Note: None. Additional: None. 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 2.MRI of the orbits was performed prior to and following the uneventful administration of 10 mL intravenous GADAVIST contrast according tostandard protocol. 3.MRV of the head was performed utilizing contrast enhancedtime-resolved technique after the uneventful administration of 10 mL GADAVISTintravenous gadolinium contrast. COMPARISON: MRI of the brain, orbits, and MRV from 10/27/2023. FINDINGS: Brain: Small linear focus of susceptibility artifacts in the medial anteriorright parietal region, (series 9, image 36), correlates with a small developmental venous anomaly, a normal variant. Otherwise, no evidenceof acute or chronic hemorrhage is identified. No evidence of acute cerebral infarction is seen. The ventricles are of stable size, shape, and morphology. A tiny septum pellucidum is present. No mass effect ormidline shift is seen. Trace periventricular white matter FLAIR hyperintensity nicholas nonspecific finding. A small developmental venous anomaly is noted inthe medial anterior parasagittal right parietal lobe, a normal variant,grossly similar to the prior. There is a smaller developmental venous anomaly in the left cerebellar hemisphere posterior lateral aspect. No enhancing lesions are otherwise identified. The pituitary height measures approximately 5.4 mm, within normal limits. The corpus callosum andsella appear normal and stable compared to the prior. Borderline low-lying cerebellar tonsils approximately 2 mm below the level of the foramen magnum, resulting in mild crowding at the level of the foramen magnum, likely representing mild cerebellar ectopia, grossly unchanged fromprior. The posterior fossa, brainstem, and craniocervical junction appear otherwise grossly unremarkable. The visualized portions of the mastoids appear normal. Normal flow voids are demonstrated in the carotid arteries and basilar artery. Thecalvarium and visualized cervical spine appear normal. Orbits: The globes and extraocular muscles appear normal. The lacrimal glands appear normal. Mildly dilated optic nerve sheaths. The optic nerves are symmetric in size and signal. No abnormal enhancement is identified in either optic nerve. The optic chiasm and suprasellar cistern appearnormal. Meckel's cave and the cavernous sinuses appear normal. There is a mucous retention cyst in the left maxillary sinus, grossly similar to prior. There is a smaller mucous retention cyst in the right maxillary sinus, grossly similar or slightly decreased compared toprior. Trace mucosal thickening in the ethmoid air cells. Mild hypertrophy ofthe inferior turbinates, right more than left. There is a small small focusof T2 hyperintensity adjacent to the left middle turbinate, (series 12,image 5), and appears abutting the nasal septum and the inferior turbinate as well. Venographic findings: The right transverse and sigmoid sinuses and the right internal jugular vein are dominant. The left transverse and sigmoid sinuses and the left internal jugular vein are nondominant and small in caliber. There ismild to moderate stenosis of the proximal and distal aspects of thenondominant left transverse sinus. The dural sinuses appear otherwise grossly normal without evidence of thrombosis. The internal cerebral veins, veins of J Luis, and visible portions of the internal jugular veins appearotherwise grossly normal without evidence of thrombosis. IMPRESSION: Compared to the prior MRI from 10/27/2023: 1.No significant change in the scan features compared to the prior. 2.No evidence of acute intracranial findings or abnormal enhancement. 3.No acute MRI findings are identified in the orbits. 4.The right transverse and sigmoid sinuses and the right internaljugular vein are dominant. The left transverse and sigmoid sinuses and the left internal jugular vein are nondominant and small in caliber. There ismild to moderate stenosis of the proximal and distal aspects of thenondominant left transverse sinus. 5.Considering the recent lumbar puncture demonstrating elevated intracranial hypertension, patient's symptoms, and the presence of low-lying cerebellar tonsils, and the presence of reduced caliber of the left transverse sinus with mild proximal and distal stenosis, theoverall findings are concerning for idiopathic intracranial hypertension, (IIH). Clinical correlation is recommended. 6.No evidence of dural venous sinus thrombosis. > Interpreting Provider: Suresh Holt MD on 02/11/2024 10:08 PM Justin Palma MD MR ORDERABLES * CREATININE - POCT INTERFACED (02/09/2024 12:31 PM CDT) Only the most recent of2 resultswithin the time period is included. Creatinine POCT 0.58 0.30 - 1.30 mg/dL 02/09/2024 12:58 PM [facility] Comment:Range ok for MRI eGFR >90 >=90 mL/min/1.7 3 m2 02/09/2024 12:58 PM [facility] Blood BLOOD SPECIMEN / Unknown 02/09/2024 12:31 PM CDT 02/09/2024 12:58 PM CDT Justin Palma MD LAB - POINT OF CARE ORDERABLES [facility] [address] [place] [address], [facility] [phone] * (ABNORMAL) CBC W AUTO DIFFERENTIAL (01/01/2024 7:23 AM CDT) [facility] WBC 7.7 4.0 - 10.7 x10E9/L 01/01/2024 7:39 AM [facility] RBC Count 4.88 3.90 - 5.20 x10E12/L 01/01/2024 7:39 AM [facility] Hemoglobin 12.6 11.9 - 15.8 g/dL 01/01/2024 7:39 AM [facility] Hematocrit 39.0 34.8 - 46.1 % 01/01/2024 7:39 AM [facility] MCV 79.9(L) 80.0 - 98.0 fL 01/01/2024 7:39 AM [facility] MCH 25.8(L) 26.7 - 33.6 pg 01/01/2024 7:39 AM [facility] MCHC 32.3 31.7 - 36.3 g/dL 01/01/2024 7:39 AM [facility] RDW-CV 14.6 11.3 - 14.8 % 01/01/2024 7:39 AM [facility] Platelet Count 233 150 - 420 x10E9/L 01/01/2024 7:39 AM [facility] MPV 9.3 7.8 - 11.4 fL 01/01/2024 7:39 AM [facility] Neutrophil % 59.2 41.0 - 74.0 % 01/01/2024 7:39 AM [facility] Lymphocyte % 30.7 17.0 - 47.0 % 01/01/2024 7:39 AM [facility] Monocyte % 7.6 3.0 - 11.0 % 01/01/2024 7:39 AM [facility] Eosinophil % 1.7 0.0 - 7.0 % 01/01/2024 7:39 AM [facility] Basophil % 0.7 0.0 - 1.6 % 01/01/2024 7:39 AM [facility] Immature Granulocytes % 0.1 0.0 - 1.0 % 01/01/2024 7:39 AM [facility] Neutrophil Absolute 4.55 1.60 - 7.50 x10E9/L 01/01/2024 7:39 AM [facility] Lymphocyte Absolute 2.36 1.00 - 4.40 x10E9/L 01/01/2024 7:39 AM [facility] Monocyte Absolute 0.58 0.15 - 1.00 x10E9/L 01/01/2024 7:39 AM [facility] Eosinophil Absolute 0.13 0.00 - 0.60 x10E9/L 01/01/2024 7:39 AM [facility] Basophil Absolute 0.05 0.00 - 0.13 x10E9/L 01/01/2024 7:39 AM [facility] Blood BLOOD SPECIMEN / Unknown Venipuncture / Unknown 01/01/2024 7:23 AM CDT 01/01/2024 7:29 AM CDT Dmitri Garza MD LAB - HEMATOLOGY ORD ERABLES [facility] [address] [place] [id number], [facility] [phone] * (ABNORMAL) COMPREHENSIVE METABOLIC PANEL (01/01/2024 7:23 AM CDT) [facility] BUN 13 7 - 26 mg/dL 01/01/2024 7:56 AM [facility] Creatinine 0.97(H) 0.56 - 0.96 mg/dL 01/01/2024 7:56 AM [facility] Sodium 137 136 - 145 mmol/L 01/01/2024 7:56 AM [facility] Potassium 3.9 3.5 - 4.5 mmol/L 01/01/2024 7:56 AM [facility] Chloride 106 98 - 107 mmol/L 01/01/2024 7:56 AM [facility] CO2 27 22 - 29 mmol/L 01/01/2024 7:56 AM [facility] Glucose 96 70 - 115 mg/dL 01/01/2024 7:56 AM [facility] Calcium 8.6 8.4 - 10.2 mg/dL 01/01/2024 7:56 AM [facility] Protein Total 7.0 6.0 - 8.3 g/dL 01/01/2024 7:56 AM [facility] Albumin 3.9 3.4 - 5.0 g/dL 01/01/2024 7:56 AM [facility] Bilirubin Total 0.5 0.2 - 1.2 mg/dL 01/01/2024 7:56 AM [facility] Alkaline Phosphatase 43 40 - 150 U/L 01/01/2024 7:56 AM [facility] ALT 24 5 - 55 U/L 01/01/2024 7:56 AM [facility] AST 23 5 - 34 U/L 01/01/2024 7:56 AM [facility] Anion Gap 4(L) 6 - 16 01/01/2024 7:56 AM [facility] BUN/Creatinine Ratio 13 7 - 23 01/01/2024 7:56 AM [facility] Osmolality Calculated 284 275 - 295 mOsm/kg 01/01/2024 7:56 AM [facility] Albumin/Globulin Ratio 1.3 1.1 - 2.3 01/01/2024 7:56 AM [facility] eGFR by CKD-EPI 82(L) >=90 mL/min/1.7 3 m2 01/01/2024 7:56 AM CDT [facility] Blood BLOOD SPECIMEN / Unknown Venipuncture / Unknown 01/01/2024 7:23 AM CDT 01/01/2024 7:29 AM CDT Dmitri Garza MD LAB - CHEMISTRY [facility] Performing Organization Address City/[facility]/ZIP Co de Phone Number [address] [address], [facility] [phone] * (ABNORMAL) CELL COUNT W DIFFERENTIAL CSF (12/28/2023 12:54 PM CDT) Tube Number [id number] 12/28/2023 1:24 PM CDT [facility] Xanthochromia ABSENT ABSENT 12/28/2023 1:24 PM CDT [facility] CSF Appearance CLEAR 12/28/2023 1:24 PM CDT [facility] CSF Color COLORLESS 12/28/2023 1:24 PM CDT [facility] Total Nucleated Cells CSF 3 <=5 x10E6/L 12/28/2023 1:24 PM CDT [facility] Comment:No differential perf ormed per procedure RBC Count CSF 52(H) <1 x10E6/L 12/28/2023 1:24 PM CDT [facility] Cerebral spinal fluid CEREBROSPINAL FLUID SPECIMEN / Unknown Collection / Unknown 12/28/2023 12:54 PM CDT 12/28/2023 1:03 PM CDT Justin Palma MD LAB - BODY FLUID ORD SUMAN [address] [address], [facility] [phone] * PROTEIN CSF (12/28/2023 12:54 PM CDT) Protein CSF 17 15 - 45 mg/dL 12/28/2023 5:41 PM CDT [facility] Cerebral spinal fluid CEREBROSPINAL FLUID SPECIMEN / Unknown Collection / Unknown 12/28/2023 12:54 PM CDT 12/28/2023 1:03 PM CDT Justin Palma MD LAB - BODY FLUID ORD ERABLES Performing Organization Address City/[facility]/ZIP Co de Phone Number [address] [address], [facility] [phone] * GLUCOSE CSF (12/28/2023 12:54 PM CDT) Glucose CSF 48 40 - 70 mg/dL 12/28/2023 1:29 PM CDT [facility] Cerebral spinal fluid CEREBROSPINAL FLUID SPECIMEN / Unknown Collection / Unknown 12/28/2023 12:54 PM CDT 12/28/2023 1:03 PM CDT Justin Palma MD LAB - BODY FLUID ORD SUMAN Performing Organization Address [facility] Co de Phone Number [address] [phone], [facility] [phone] * FL LUMBAR PUNCTURE (12/28/2023 12:43 PM CDT) Anatomical Region Laterality Modality Spine Radiographic Allison ging 12/28/2023 1:10 PM CDT Impressions 12/28/2023 2:52 PM CDT IMPRESSION: 1. Successful lumbar puncture under fluoroscopic guidance at L4-5. The report is dictated by Ta Weir MD, (residential gas heat technician) I, Emilia Farrell MD have personally reviewed and interpreted this examination/study. > Interpreting Provider: Emilia Farrell MD on 12/28/2023 2:52 PM Narrative 12/28/2023 2:52 PM CDT PROCEDURE: FL LUMBAR PUNCTURE, DATE/TIME OF EXAM: 12/28/2023 12:56 PM, LOCATION [facility] INDICATION: H47.10: Papilledema EXAMINATION: Diagnostic lumbar puncture (LP) under fluoroscopic guidance TECHNIQUE: The risks and benefits of the lumbar puncture including, but not limited to, infection, bleeding, seizure, epidural hematoma, post spinal headache, cerebrospinal fluid (CSF) leak requiring blood patch procedure, nausea, vomiting, irritation or damage to nerves causing pain or permanent injury were discussed with the patient. After alternatives were discussed and the opportunity to ask questions was provided, the patient acknowledged understanding, gave verbal and written consent, and wished to proceed. Attending physician: Dr. Farrell was present for the montaño portions of this procedure. The L4-5 level was localized with fluoroscopy. The skin overlying this level was then sterilely prepped, draped, and infiltrated with 1% lidocaine for local anesthesia. Under intermittent fluoroscopic guidance, a 20 gauge 3.5 inch spinal needle was inserted into the thecal sac at this level. Clear CSF was identified. A total of 15 ml of CSF was removed and placed into 4 specimen tubes. The patient tolerated the procedure well. The patient was then transferred to the child care attendant school unit for further observation and 2 hrs of bedrest. OPENING PRESSURE: Prone position: [id number]; Left lateral decubitus position: [id number]. 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 After alternativeswere discussed and the opportunity to ask questions was provided, the patient acknowledged understanding, gave verbal and written consent, and wishedto proceed. Attending physician: Dr. Farrell was present for the montaño portions of this procedure. The L4-5 level was localized with fluoroscopy. The skin overlying this level was then sterilely prepped, draped, and infiltrated with 1%lidocaine for local anesthesia. Under intermittent fluoroscopic guidance, a 20gauge 3.5 inch spinal needle was inserted into the thecal sac at this level. Clear CSF was identified. A total of 15 ml of CSF was removed and placed into 4 specimen tubes. The patient tolerated the procedure well. The patient was then transferred to the child care attendant school unit for further observation and 2 hrs of bedrest. OPENING PRESSURE: Prone position: [id number]; Left lateral decubitusposition: [id number]. FLUOROSCOPY TIME: 53.6 IMPRESSION: 1. Successful lumbar puncture under fluoroscopic guidance at L4-5. The report is dictated by Ta Weir MD, (residential gas heat technician) IEmilia MD have personally reviewed and interpreted this examination/study. > Interpreting Provider: Emliia Farrell MD on 12/28/2023 2:52 PM Justin Palma MD FLUOROSCOPY ORDERABL ES * HCG URINE QUALITATIVE - POCT (IP) INTERFACED (12/28/2023 10:31 AM CDT) HCG Qual Urine Negative Negative 12/28/2023 10:38 AM CDT [facility] Urine URINE / Unknown 12/28/2023 1 0:31 AM CDT 12/28/2023 10:38 AM CDT Justin Palma MD LAB - POINT OF CARE ORDERABLES [address] [address], [facility] [phone] * HCG URINE QUAL POCT NOTIFICATION (12/28/2023 10:24 AM CDT) Comment Notification Label Only - See Separate Report 12/28/2023 11:31 AM CDT [facility] Urine URINE / Unknown 12/28/2023 1 0:24 AM CDT 12/28/2023 10:28 AM CDT Justin Palma MD LAB - URINALYSIS ORD ERABLES Performing Organization Address City/[facility]/ZIP Co de Phone Number [address] [address], [facility] [phone] * PROPHYLAXIS RETINA DETACH PHOTOCOAG OS (12/21/2023 12:58 PM CDT) Anatomical Region Laterality Modality Head Other Narrative 12/21/2023 12:58 PM CDT Table formatting from the original result was not included. [facility] Ophthalmology Procedure Note 12/20/2023 Patient: John Preston Age: [age] year old Date of : 1995 Retinal Laser Note: PREPROCEDURE DIAGNOSIS: Retinal hole without detachment, left eye POSTPROCEDURE DIAGNOSIS: same RESIDENT: None PROCEDURE PERFORMED: Laser retinopexy, left eye ANESTHESIA: Topical drops eye (Proparacaine) COMPLICATIONS: None. ESTIMATED BLOOD LOSS: None PROCEDURE IN DETAIL: Prior to retinopexy, risks, benefits, and alternatives discussed including progression of current situation to full blown RD, inadvertent laser to the macula, epiretinal membrane, anterior segment underwood, new retinal break formation, need for further procedures. Informed consent was obtained and the surgical permission form was signed and witnessed. Timeout was performed and site was confirmed. Using Slit lamp laser was administered to the periphery of the retina using the following specifications: Lens : Retina 180 lens Spot size 200 Time: 80 msec Power: 140 mW Interval: 0.2 msec Total number of shots: 321 The hole was surrounded 360 by three rows of laser. Patient tolerated the procedure well. There was no complications. Postop instructions given. I personally performed the whole procedure for the patient. Marylou Gonzalez MD Attending, Retina Service Date of service 12/20/2023 Marylou Gonzalez MD OPHTHALMOLOGY SER VICES ORDERABLES * PROPHYLAXIS RETINA DETACH PHOTOCOAG OD (12/13/2023 5:16 PM CDT) Anatomical Region Laterality Modality Head Other Narrative 12/13/2023 5:16 PM CDT Table formatting from the original result was not included. 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 ESTIMATED BLOOD LOSS: None PROCEDURE IN DETAIL: Prior to retinopexy, risks, benefits, and alternatives discussed including progression of current situation to full blown RD, inadvertent laser to the macula, epiretinal membrane, anterior segment underwood, new retinal break formation, need for further procedures. Informed consent was obtained and the surgical permission form was signed and witnessed. Timeout was performed and site was confirmed. Using Slit lamp laser was administered to the periphery of the retina using the following specifications: Lens : Retina 200 lens Spot size 200 Time: 80 msec Power: 140mW Interval: 0.2 msec Total number of shots: 630 Patient tolerated the procedure well. There was no complications. Postop instructions given. I personally performed the whole procedure for the patient. Marylou Gonzalez MD Attending, Retina service Date of service 12/13/2023 Marylou Gonzalez MD OPHTHALMOLOGY SER VICES ORDERABLES * RETINAL ANALYSIS OCT (12/13/2023 2:20 PM CDT) Anatomical Region Laterality Modality Head External-Camera Photography Narrative 12/13/2023 2:48 PM CDT Images from the original result were not included. OD: Normal contour OS: Normal contour Marylou Gonzalez MD OPHTHALMOLOGY [facility] ED ORD W PACS * MRI ANGIO BRAIN ARTERIAL WO CONT (10/27/2023 5:03 PM CDT) Anatomical Region Laterality Modality Head Magnetic Resonan ce 10/29/2023 11:1 9 PM CDT Impressions 10/30/2023 8:37 AM CDT IMPRESSION: 1.No evidence of acute intracranial findings or abnormal enhancement. 2.Fundus examination is recommended to exclude the possibility of papilledema. 3.Otherwise, no acute MRI findings are identified in the orbits.. 4.There is a 2 mm lateral outpouching at the cavernous segment of the left internal carotid artery, concerning for small aneurysm. 5.Otherwise, normal large arterial occlusions or hemodynamically significant stenoses identified in the head. > Interpreting Provider: Suresh Holt MD on 10/30/2023 8:37 AM Narrative 10/30/2023 8:37 AM CDT PROCEDURE: MRI BRAIN WWO CONTRAST, MRI ORBITS OR FACE WWO CONTRAST, MRI ANGIO BRAIN ARTERIAL WO CONT, DATE/TIME OF EXAM: 10/27/2023 5:22 PM, LOCATION [facility] INDICATION: G50.0: Trigeminal neuralgia G44.59: Other complicated headache syndrome ADDITIONAL CLINICAL INFORMATION: Ordering Provider Reason For Exam: Trigeminal neuralgia. Technologist Note: None. Additional: None. CONTRAST: GADOBUTROL 1 MMOL/ML IV SSM SO:8.5 mL EXAMINATION: 1.Magnetic resonance imaging (MRI) of the brain without and with contrast 2.Magnetic resonance angiography (MRA) of the head without contrast 3.MRI of the orbits without and with contrast TECHNIQUE: 1.MRI of the brain was performed prior to and following the uneventful administration of 8.5 mL intravenous GADAVIST contrast according to standard protocol. 2.MR arteriography of the head was performed without contrast utilizing time of flight technique. 3.MRI of the orbits was performed prior to and following the uneventful administration of 8.5 mL intravenous GADAVIST contrast according to standard protocol. COMPARISON: CT of the head from 06/05/2022 FINDINGS: Brain: No evidence of acute or chronic hemorrhage is identified. No evidence of acute cerebral infarction is seen. The ventricles are of stable size, shape, and morphology. A tiny septum pellucidum is present. No mass effect or midline shift is seen. Trace periventricular white matter FLAIR hyperintensity is a nonspecific finding. No enhancing lesions are identified. The corpus callosum and sella appear normal. Borderline low-lying cerebellar tonsils approximately 2 mm below the level of the foramen magnum which could represent mild cerebellar ectopia. The posterior fossa, brainstem, and craniocervical junction appear normal. The visualized portions of the mastoids appear normal. Normal flow voids are demonstrated in the carotid arteries and basilar artery. The calvarium and visualized cervical spine appear normal. Angiographic findings: The distal internal carotid arteries appear normal. The anterior and middle cerebral arteries appear normal. The distal vertebral arteries appear normal. The basilar artery and posterior cerebral arteries appear normal. There is a 2 mm lateral outpouching at the cavernous segment of the left internal carotid artery, (series 3, image 71), concerning for small aneurysm. Otherwise, no additional aneurysms, vascular occlusions, or hemodynamically significant intracranial stenoses are identified. Orbits: The globes and extraocular muscles appear normal. The lacrimal glands appear normal. Mildly dilated optic nerve sheaths. The optic nerves are symmetric in size and signal. No abnormal enhancement is identified in either optic nerve. The optic chiasm and suprasellar cistern appear normal. Meckel's cave and the cavernous sinuses appear normal. There is a mucous retention cyst in the left maxillary sinus. There is a smaller mucous retention cyst in the right maxillary sinus. Trace mucosal thickening in the ethmoid air cells.. Procedure Note Suresh Holt MD - 10/30/2023 PROCEDURE: MRI BRAIN WWO CONTRAST, MRI ORBITS OR FACE WWO CONTRAST, MRI ANGIO BRAIN ARTERIAL WO CONT, DATE/TIME OF EXAM: 10/27/2023 5:22 PM, LOCATION [facility] INDICATION: G50.0: Trigeminal neuralgia G44.59: Other complicated headache syndrome ADDITIONAL CLINICAL INFORMATION: Ordering Provider Reason For Exam: Trigeminal neuralgia. Technologist Note: None. Additional: None. CONTRAST: GADOBUTROL 1 MMOL/ML IV SSM SO:8.5 mL EXAMINATION: 1.Magnetic resonance imaging (MRI) of the brain without and withcontrast 2.Magnetic resonance angiography (MRA) of the head without contrast 3.MRI of the orbits without and with contrast TECHNIQUE: 1.MRI of the brain was performed prior to and following the uneventful administration of 8.5 mL intravenous GADAVIST contrast according to standard protocol. 2.MR arteriography of the head was performed without contrast utilizing time of flight technique. 3.MRI of the orbits was performed prior to and following the uneventful administration of 8.5 mL intravenous GADAVIST contrast according to standard protocol. COMPARISON: CT of the head from 06/05/2022 FINDINGS: Brain: No evidence of acute or chronic hemorrhage is identified. No evidence of acute cerebral infarction is seen. The ventricles are of stable size, shape, and morphology. A tiny septum pellucidum is present. No masseffect or midline shift is seen. Trace periventricular white matter FLAIR hyperintensity is a nonspecific finding. No enhancing lesions are identified. The corpus callosum and sella appear normal. Borderline low-lying cerebellar tonsils approximately 2 mm below the level of the foramen magnum which could represent mild cerebellar ectopia. Theposterior fossa, brainstem, and craniocervical junction appear normal. The visualized portions of the mastoids appear normal. Normal flow voids are demonstrated in the carotid arteries and basilar artery. Thecalvarium and visualized cervical spine appear normal. Angiographic findings: The distal internal carotid arteries appear normal. The anterior andmiddle cerebral arteries appear normal. The distal vertebral arteries appear normal. The basilar artery and posterior cerebral arteries appearnormal. There is a 2 mm lateral outpouching at the cavernous segment of the left internal carotid artery, (series 3, image 71), concerning for small aneurysm. Otherwise, no additional aneurysms, vascular occlusions, or hemodynamically significant intracranial stenoses are identified. Orbits: The globes and extraocular muscles appear normal. The lacrimal glands appear normal. Mildly dilated optic nerve sheaths. The optic nerves are symmetric in size and signal. No abnormal enhancement is identified in either optic nerve. The optic chiasm and suprasellar cistern appearnormal. Meckel's cave and the cavernous sinuses appear normal. There is a mucous retention cyst in the left maxillary sinus. There is a smaller mucous retention cyst in the right maxillary sinus. Tracemucosal thickening in the ethmoid air cells.. IMPRESSION: 1.No evidence of acute intracranial findings or abnormal enhancement. 2.Fundus examination is recommended to exclude the possibility of papilledema. 3.Otherwise, no acute MRI findings are identified in the orbits.. 4.There is a 2 mm lateral outpouching at the cavernous segment of theleft internal carotid artery, concerning for small aneurysm. 5.Otherwise, normal large arterial occlusions or hemodynamically significant stenoses identified in the head. > Interpreting Provider: Suresh Holt MD on 10/30/2023 8:37 AM Jabari Thornton TRIM MASTER OPERATOR-OILER BANDER MR ORDERABLES * CT HEAD WO CONTRAST (06/05/2022 6:46 AM CLASSROOM INSTRUCTIONAL AIDE) Anatomical Region Laterality Modality Head Computed Tomogra phy 06/06/2022 8:03 AM CLASSROOM INSTRUCTIONAL AIDE Impressions 06/06/2022 1:08 PM CLASSROOM INSTRUCTIONAL AIDE IMPRESSION: No acute intracranial abnormality. IEmilia MD have personally reviewed and interpreted this examination/study. > Interpreting Provider: Emilia Farrell MD on 06/06/2022 1:08 PM Narrative 06/06/2022 1:08 PM CLASSROOM INSTRUCTIONAL AIDE PROCEDURE: CT HEAD WO CONTRAST, DATE/TIME OF EXAM: 06/05/2022 6:46 AM, LOCATION [facility] INDICATION: G44.59: Other complicated headache syndrome COMPARISON: None. EXAMINATION: CT scan of the head without intravenous contrast TECHNIQUE: CT of the head was performed without intravenous contrast according to standard protocol. CT dose reduction technique was used, including Automated Exposure Control. FINDINGS: The brain parenchyma is normal in appearance. There is no CT evidence of acute infarct. There is no acute hemorrhage within the limits of the study. There is no hydrocephalus, midline shift or extra-axial fluid collection. Moderate sized mucosal retention cyst within the left maxillary sinus. The orbits are unremarkable. No significant osseous abnormality is noted. No acute fracture is noted. Hyperdense punctate foci along the scalp predominantly along the vertex could be secondary to calcifications versus punctate foreign bodies. Procedure Note Emilia Farrell MD - 06/06/2022 PROCEDURE: CT HEAD WO CONTRAST, DATE/TIME OF EXAM: 06/05/2022 6:46 AM, LOCATION [facility] INDICATION: G44.59: Other complicated headache syndrome COMPARISON: None. EXAMINATION: CT scan of the head without intravenous contrast TECHNIQUE: CT of the head was performed without intravenous contrast according to standard protocol. CT dose reduction technique was used, including Automated Exposure Control. FINDINGS: The brain parenchyma is normal in appearance. There is no CT evidence of acute infarct. There is no acute hemorrhage within the limits of the study. There is no hydrocephalus, midline shift or extra-axial fluid collection. Moderate sized mucosal retention cyst within the left maxillary sinus.The orbits are unremarkable. No significant osseous abnormality is noted. No acute fracture is noted. Hyperdense punctate foci along the scalp predominantly along the vertex could be secondary to calcificationsversus punctate foreign bodies. IMPRESSION: No acute intracranial abnormality. IEmilia MD have personally reviewed and interpreted this examination/study. > Interpreting Provider: Emilia Farrell MD on 06/06/2022 1:08 PM Jabari Thornton TRIM MASTER OPERATOR-OILER BANDER CT ORDERABLES * XR LUMBAR SPINE 2 OR 3VW (04/13/2022 1:12 PM CLASSROOM INSTRUCTIONAL AIDE) Anatomical Region Laterality Modality Spine Radiographic Allison ging 04/13/2022 1:19 PM CLASSROOM INSTRUCTIONAL AIDE Impressions 04/13/2022 1:20 PM CLASSROOM INSTRUCTIONAL AIDE IMPRESSION: 1. L5-S1 chronic degenerative disc disease > Interpreting Provider: Clare Campos MD on 04/13/2022 1:20 PM Narrative 04/13/2022 1:20 PM CLASSROOM INSTRUCTIONAL AIDE PROCEDURE: XR LUMBAR SPINE 2 OR 3VW, DATE/TIME OF EXAM: 04/13/2022 1:13 PM, LOCATION [facility] INDICATION: M54.50: Low back pain, unspecified ADDITIONAL CLINICAL INFORMATION: Ordering Provider Reason For Exam: low back pain Technologist Note: Additional: Weightbearing COMPARISON: None. FINDINGS: There is mild to moderate chronic degenerative disc disease at L5-S1 with slight loss of interspace height. There is no fracture or subluxation. Facets are unremarkable. SI joints are patent. Procedure Note Clare Campos MD - 04/13/2022 PROCEDURE: XR LUMBAR SPINE 2 OR 3VW, DATE/TIME OF EXAM: :13 PM, LOCATION [facility] INDICATION: M54.50: Low back pain, unspecified ADDITIONAL CLINICAL INFORMATION: Ordering Provider Reason For Exam: low back pain Technologist Note: Additional: Weightbearing COMPARISON: None. FINDINGS: There is mild to moderate chronic degenerative disc disease at L5-S1with slight loss of interspace height. There is no fracture or subluxation. Facets are unremarkable. SI joints are patent. IMPRESSION: 1. L5-S1 chronic degenerative disc disease > Interpreting Provider: Clare Campos MD on 04/13/2022 1:20 PM Jona hCu MD DIAGNOSTIC IMAGING O RDERABLES Care Teams Major Gifts Officer Relationship Specialty Start Date End Date Zee Cruz APRN-OILER BANDER [address] [place] [address] PCP - General 09/13/23
--- OUTSIDE RECORDS SUMMARY | 2024-08-06 17:14 | XMS_ITS | Patient Health Record ---
Author Organization [facility] [employer] [facility] Address [address] [facility] [address] [place] [address] Care Team Providers Care Assistant Casino Shift Manager Name Role Phone Taya Robertson Unavailable [phone] Macy Rose Unavailable [phone] Migration, Provider Unavailable Unavailable Allergies No Known Allergies Results Component Value Reference Range Notes DRUG SCREEN, 14 DRUGS (DETEC TIMED), URINE Reviewed date:10/03/2023 12:00:00 AM Interpretation: Performing Lab: Notes/Report: DRUG SCREEN, 14 DRUGS (DETEC TIMED), URINE Reviewed date:10/03/2023 12:00:00 AM Interpretation: Performing Lab: Notes/Report: Amphetamine negative Barbiturates negative Benzodiazipine negative Buprenorphine negative Cocaine negative MDMA/Ectasy negative Methadone negative Methamphetamine negative Morphine negative note +thc Oxycodone negative Phenocyclidine negative THC positive Reason For Referral No Information Medications Medication SIG (Take, Route, Frequency, Duration) Notes Start Date End Date Status hydrOXYzine HCl 10 MG 1 tablet Orally three times a day for 30 days 12/05/2023 Active Topiramate 25 MG Oral 10/03/2023 Un known LIDOCAINE/ANTACID/WAL -DRYL 111 *Reorder from [employer] for eRx and Interaction Alerts* 10/03/2023 Unknown buPROPion HCl ER (XL) 300 MG 1 tablet in the morning Orally Once a day for 90 days Active OXcarbazepine 600 MG Oral 10/03/2023 Unknown Fluticasone Propionate Diskus 50 MCG/ACT Inhalation *Reorder from [employer] for eRx and Interaction Alerts* 10/03/2023 Unknown traZODone HCl 50 MG 1 tablet at bedtime as needed Oral Once a day for 90 days 10/03/2023 Active Gabapentin 100 MG Oral 10/03/2023 U nknown Rizatriptan Benzoate 5 MG Oral 10/03/2023 Unknown MIRENA 21 MCG/24 HR (UP TO 8 YEARS) 52 MG INTRAUTERINE DEVICE *Reorder from [employer] for eRx and Interaction Alerts* 10/03/2023 Unknown Sertraline HCl 50 MG 1.5 tablet Oral Once a day for 90 days Active Social History Tobacco Use: Social History Observation Description Date Details (start date - stop date) Never Smoker NA - NA Sex Assigned At : Social History Observation Description Sex Assigned At Unknown Tobacco Control (Standard) Question Answer Notes Tobacco use: Nonsmoker AUDIT-C (Standard) Question Answer Notes Interpretation Positive Did you have a drink contain ing alcohol in the past year? Yes How often did you have six o r more drinks on one occasion in the past year? 2 to 4 times a month (2 points) How many drinks did you have on a typical day when you were drinking in the past year? 3 or 4 drinks (1 point) How often did you have a dri nk containing alcohol in the past year? 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) Active confirmed Problem Generalized anxiety disorder (42937340) Generalized anxiety disorder (F41.1) Active confirmed Problem Insomnia disorder related to another mental disorder (78152152) Insomnia due to other mental disorder (F51.05) Active confirmed Problem [id number] Post traumatic stress disorder (PTSD) (F43.10) Active confirmed Vital Signs Heart Rate 80 /min 10/03/2023 Height-cm 180.34 cm 10/03/2023 Blood pressure diastolic 62 mm Hg 10/03/2023 Weight-kg 90.67 kg 10/03/2023 Height 71.00 in 10/03/2023 Blood pressure systolic 118 mm Hg 10/03/2023 Weight 199.90 lbs 10/03/2023 BMI 27.9 kg/m2 10/03/2023 Encounters [facility]counter [facility] Date [facility] [place] [address] [facility] [address] [place] [address] 10/03/2023 Taya Ailyn Insomnia due to other mental disorder F51.05 ; Generalized anxiety disorder F41.1 and Major depressive disorder, recurrent severe without psychotic features F33.2 [facility], [facility] [address] [place] [address] 11/12/2023 Taya Ailyn Major depressive disorder, recurrent severe without psychotic features F33.2 ; Generalized anxiety disorder F41.1 and Insomnia due to other mental disorder F51.05 [facility] [place] [address] [place] [address] 11/14/2023 Macy Hemann Major depressive disorder, recurrent severe without psychotic features F33.2 and Generalized anxiety disorder F41.1 [facility] [address] [place] [address] 12/05/2023 Taya Ailyn Major depressive disorder, recurrent severe without psychotic features F33.2 and Generalized anxiety disorder F41.1 [facility] [address] [place] [address] 12/25/2023 Macy Hemann Post traumatic stress disorder (PTSD) F43.10 ; Major depressive disorder, recurrent severe without psychotic features F33.2 and Generalized anxiety disorder F41.1 [facility], [facility] [address] [place] [address] 01/03/2024 Taya Ailyn Major depressive disorder, recurrent severe without psychotic features F33.2 and Generalized anxiety disorder F41.1 [facility] [place] [address] [place] [address] 01/29/2024 Macy Hemann Post traumatic stress disorder (PTSD) F43.10 ; Major depressive disorder, recurrent severe without psychotic features F33.2 and Generalized anxiety disorder F41.1 [facility] [place] [address] [place] [address] 01/30/2024 Taya Ailyn Major depressive disorder, recurrent severe without psychotic features F33.2 and Generalized anxiety disorder F41.1 [facility] [address] [place] [address] 02/27/2024 Taya Ailyn Major depressive disorder, recurrent severe without psychotic features F33.2 and Generalized anxiety disorder F41.1 [facility] [address] [place] [address] 09/12/2023 Provider Migration [facility], [facility] [address] [place] [address] 10/03/2023 Provider Migration [facility], [facility] [address] [place] [address] 10/05/2023 Provider Migration [facility], [facility] [address] [place] [address] 10/08/2023 Provider Migration [facility], [facility] [address] [place] [address] 10/16/2023 Provider Migration [facility], [facility] [address] [place] [address] 10/20/2023 Provider Migration [facility], [facility] [address] [place] [address] 10/21/2023 Provider Migration [facility], [facility] [address] [place] [address] 11/24/2023 [facility] [address] [place] [address] 11/24/2023 [facility], [facility] [address] [place] [address] 11/27/2023 [facility], [facility] [address] [place] [address] 11/27/2023 [facility], [facility] [address] [place] [address] 12/25/2023 [facility], [facility] [address] [place] [address] 12/26/2023 [facility], [facility] [address] [place] [address] 12/27/2023 [facility], [facility] [address] [place] [address] 12/27/2023 [facility], [facility] [address] [place] [address] 12/27/2023 [facility], [facility] [address] [place] [address] 01/02/2024 Taya Robertson [facility] [employer] [address] [place] [address] 01/25/2024 Taya Robertson [facility] [employer] [facility] [address] [place] [address] 03/26/2024 Taya Robertson [facility] [employer] mentor | [employer] [facility] [address] [place] [address] 08/01/2024 Taya Robertson Assessments Encounter Date Diagnosis (ICD Code) Assessment Notes Treatment Notes Treatment Clinical Notes Section Notes 11/12/2023 Major depressive disorder, recurrent severe without psychotic features (ICD-10 - F33.2) Start Wellbutrin 150mg daily for mood, motivation Continues to struggle with depression and anxiety, may be slightly better on sertraline. Concern for weight gain since starting sertraline. 11/12/2023 Generalized anxiety disorder (ICD-10 - F41.1) Continues to struggle with depression and anxiety, may be slightly better on sertraline. Concern for weight gain since starting sertraline. 10/03/2023 Major depressive disorder, recurrent severe without psychotic features (ICD-10 - F33.2) 10/03/2023 Generalized anxiety disorder (ICD-10 - F41.1) 10/03/2023 Insomnia due to other mental disorder (ICD-10 - F51.05) 11/14/2023 Major depressive disorder, recurrent severe without psychotic features (ICD-10 - F33.2) 11/14/2023 Generalized anxiety disorder (ICD-10 - F41.1) 12/05/2023 Major depressive disorder, recurrent severe without psychotic features (ICD-10 - F33.2) Discontinue Trazodone due to ineffectiveness. 12/25/2023 Major depressive disorder, recurrent severe without psychotic features (ICD-10 - F33.2) 12/25/2023 Post traumatic stress disorder (PTSD) (ICD-10 - F43.10) 01/03/2024 Major depressive disorder, recurrent severe without psychotic features (ICD-10 - F33.2) 01/29/2024 Major depressive disorder, recurrent severe without psychotic features (ICD-10 - F33.2) 01/29/2024 Post traumatic stress disorder (PTSD) (ICD-10 - F43.10) 01/30/2024 Major depressive disorder, recurrent severe without psychotic features (ICD-10 - F33.2) 02/27/2024 Major depressive disorder, recurrent severe without psychotic features (ICD-10 - F33.2) Common side effects to SSRI medications include headaches, dry mouth/eye, GI upset (including indigestion, nausea, diarrhea), sleeping problems (insomnia or drowsiness), decreased libido, blurred vision, dizziness. Generally, side effects will subside or lessen with time and are common during drug initiation and dose changes. If they persist please contact the office. Common side effects of Wellbutrin include insomnia, increased anxiety, nausea, dizziness, decreased appetite, restlessness, irritability and anger, increased sweating or hot flashes, tremors, joint pain. Wellbutrin is not recommended in individuals with a history of seizures. If side effects persist, please contact the office. 02/27/2024 Generalized anxiety disorder (ICD-10 - F41.1) 01/30/2024 Generalized anxiety disorder (ICD-10 - F41.1) 01/29/2024 Generalized anxiety disorder (ICD-10 - F41.1) 01/03/2024 Generalized anxiety disorder (ICD-10 - F41.1) 12/25/2023 Generalized anxiety disorder (ICD-10 - F41.1) 12/05/2023 Generalized anxiety disorder (ICD-10 - F41.1) Start hydroxyzine 10mg TID PRN for panic, anxiety. Patient educated on all medications including potential benefits, side effects, risks. Educated on proper dosing schedule and importance of compliance. 11/12/2023 Insomnia due to other mental disorder (ICD-10 - F51.05) Continues to struggle with depression and anxiety, may be slightly better on sertraline. Concern for weight gain since starting sertraline. 11/12/2023 Other Starts counseling with Macy on Sunday Continues to struggle with depression and anxiety, may be slightly better on sertraline. Concern for weight gain since starting sertraline. 01/03/2024 Other Increase sertraline to 100mg daily for anxiety, mood. Patient educated on all medications including potential benefits, side effects, risks. Educated on proper dosing schedule and importance of compliance. Continue counseling with Macy. 01/30/2024 Other Increase sertraline to 75mg daily Patient educated on all medications including potential benefits, side effects, risks. Educated on proper dosing schedule and importance of compliance. 02/27/2024 Other Increase Wellbutrin to 300mg for mood Patient educated on all medications including potential benefits, side effects, risks. Educated on proper dosing schedule and importance of compliance. Discussed adding magnesium glycinate for sleep support, limiting simple carbs before bedtime. Plan Of Treatment No Information Insurance Providers Payer Name Payer Address Payer Phone Subscriber Number Group Number Insured Name Patient Relationship to Insured Coverage Start Date Coverage End Date [employer] [address] [place] [address] [id number] JENIFER GREGORY Self - patient is the insured"
--- OUTSIDE RECORDS SUMMARY | 2024-08-06 17:14 | XMS_ITS | Clinical Summary ---
Author Organization [facility] Address [address] [place] [address] Care Team Providers Care Passenger Conductor Name Role Phone New Referring, Provider Primary Care Provider Un available Allergies No known active allergies Medications famotidine 20 MG tablet Take 1 tablet (20 mg total) by mouth daily. 30 tablet 01/06/2019 Active dicyclomine 10 MG capsule Take 1 capsule (10 mg total) by mouth 2 (two) times daily as needed. 20 capsule 01/06/2019 Active Family History Medical History Relation Comments None Father Relation Status Comments Father Alive Mother Social History Tobacco Use Types Packs/Day Years Used Date Smoking Tobacco: Never Smokeless Tobacco: Never Alcohol Use Standard Drinks/Week Comments Yes 0 (1 standard drink = 0.6 oz pur e alcohol) SOCIALLY Comments No Sex and Gender Information Value Date Recorded Sex Assigned at Not on file Legal Sex Female 2:25 PM CDT Gender Identity Not on file Sexual Orientation Not on file Last Filed Vital Signs Vital Sign Reading Time Taken Comments Blood Pressure 128/81 01/06/2019 2:39 PM CDT Pulse 56 01/06/2019 2:39 PM CDT Temperature 36.7 C (98.1 F) 01/06/2019 2:39 PM CDT Respiratory Rate 20 01/06/2019 2:39 PM CDT Oxygen Saturation 100% 01/06/2019 2:41 PM CDT Inhaled Oxygen Concentration - - Weight 81.2 kg (179 lb) 01/06/2019 2:39 PM CDT Height 180.3 cm (5' 11 ) 01/06/2019 2:39 PM CDT Body Mass Index 24.97 01/06/2019 2:39 PM CDT Plan of Treatment Health Maintenance Due Date Last Done Comments Cervical Cancer Screening Pa p Smear (Age 21 to 29) Every 3 Years 1995 Cervical Cancer Screening 1995 Annual Physical 08/20/1998 Hepatitis C 08/20/2013 DTaP, Tdap and Td Vaccines ( 1 - Tdap) 08/20/2014 Hepatitis B Vaccines (1 of 3 - 19+ 3-dose series) 08/20/2014 COVID-19 Vaccine ( - 2023-2 5 season) 2024 Influenza Adult (#1) 2024 HPV Vaccines Aged Out No longer eligi ble based on patient's age to complete this topic Meningococcal B Vaccine Aged Out No l onger eligible based on patient's age to complete this topic Meningococcal Vaccine Aged Out No harshil nilesh eligible based on patient's age to complete this topic Pneumococcal Vaccine: Pediat rics (0 to 5 Years) and At-Risk Patients (6 to 64 Years) Aged Out No longer eligible b ased on patient's age to complete this topic RSV Immunizations Under 20 Months Aged Out No longer eligible based on patient's age to complete this topic Insurance GENERIC - COMMERCIAL Care Teams Passenger Conductor Relationship Specialty Start Date End Date New Referring, Provider PCP - General UNKNOWN PHYSICIAN SPECIALTY 01/06/19
--- OUTSIDE RECORDS SUMMARY | 2024-08-06 17:14 | XMS_ITS | Encounter Summary ---
Author Organization [facility] Address [address] [place] [address] Care Team Providers Care Dice Table Operator Name Role Phone Unavailable Primary Care Provider Unavailabl e Encounter Details Date Type Department Care Team (Late st Contact Info) Description 08/06/2024 External Device Data [place] ABSTRACTION Provider, Abstract NO ADDRESS ON FILE Social History Tobacco Use Types Packs/Day Years Used Date Smoking Tobacco: Never Assessed Comments Unknown Sex and Gender Information Value Date Recorded Sex Assigned at Not on file Legal Sex Female 8:47 AM CDT Gender Identity Not on file Sexual Orientation Not on file documented as of this encounter Plan of Treatment Not on file documented as of this encounter Visit Diagnoses Not on filedocumented in this encounter
--- OUTSIDE RECORDS SUMMARY | 2024-08-06 17:14 | XMS_ITS | Clinical Summary ---
Author Organization [facility] [employer] [place] Address [address] [address] Care Team Providers Care Alcoholism Worker Name Role Phone Unavailable Primary Care Provider Unavailabl e Active Problems No known active problems Encounters Date Type Department Care Team Description 08/06/2024 External Device Data ST[facility] ABSTRACTION Provider, Abstract 08/04/2024 9:40 AM DIRECTOR CARDIOVASCULAR Office Visit [facility] [place] [address] [place] [phone] Screening for condition (Primary Dx) from Last 3 Months Social History Tobacco Use Types Packs/Day Years Used Date Smoking Tobacco: Never Assessed Comments Unknown Sex and Gender Information Value Date Recorded Sex Assigned at Not on file Legal Sex Female 8:47 AM CDT Gender Identity Not on file Sexual Orientation Not on file Last Filed Vital Signs Vital Sign Reading Time Taken Comments Blood Pressure 124/88 08/04/2024 9:33 AM DIRECTOR CARDIOVASCULAR Pulse - - Temperature - - Respiratory Rate - - Oxygen Saturation - - Inhaled Oxygen Concentration - - Weight 108.4 kg (239 lb) 08/04/2024 9:33 AM DIRECTOR CARDIOVASCULAR Height 180.3 cm (5' 11 ) 08/04/2024 9:33 AM DIRECTOR CARDIOVASCULAR Body Mass Index 33.33 08/04/2024 9:33 AM DIRECTOR CARDIOVASCULAR Plan of Treatment Health Maintenance Due Date Last Done Comments DTAP/TDAP/TD VACCINES (1 - Tdap) 08/20/2014 HEPATITIS B VACCINES (1 of 3 - 19+ 3-dose series) 08/20/2014 CERVICAL CANCER SCREENING 08/20/2016 INFLUENZA VACCINE (#1) 2024 Preventative Visit- Commercial 06/04/2024 HPV VACCINES Aged Out No longer eligi ble based on patient's age to complete this topic Procedures Procedure Name Priority Date/Time Associated Diagnosis Comments CBC WITH DIFFERENTIAL Routine 08/04/2024 9:33 AM DIRECTOR CARDIOVASCULAR Screening for condition COMPREHENSIVE METABOLIC PANEL Routine 08/04/2024 9:33 AM DIRECTOR CARDIOVASCULAR Screening for condition LIPID PANEL Routine 08/04/2024 9:33 AM DIRECTOR CARDIOVASCULAR Screening for condition TSH Routine 08/04/2024 9:33 AM DIRECTOR CARDIOVASCULAR Screening for condition from Last 3 Months Results * (ABNORMAL) CBC WITH DIFFERENTIAL (08/04/2024 9:33 AM DIRECTOR CARDIOVASCULAR) WBC 7.7 3.8 - 10.8 Thousand/u L [facility] RBC 4.79 3.80 - 5.10 Million/uL [facility] HEMOGLOBIN 12.1 11.7 - 15.5 g/dL [facility] HEMATOCRIT 38.9 35.0 - 45.0 % [facility] MCV 81.2 80.0 - 100.0 fL [facility] MCH 25.3(L) 27.0 - 33.0 pg [facility] MCHC 31.1(L) 32.0 - 36.0 g/dL [facility] Comment: For adults, a slight decrease in the calculated MCHC value (in the range of 30 to 32 g/dL) is most likely not clinically significant; however, it should be interpreted with caution in correlation with other red cell parameters and the patient's clinical condition. RDW 13.1 11.0 - 15.0 % [facility] PLATELETS 264 140 - 400 Thousand/u L [facility] MPV 10.6 7.5 - 12.5 fL [facility] NEUTROPHIL ABSOLUTE 4,374 1,500 - 7,800 cells/uL [facility] LYMPHOCYTE ABSOLUTE 2,248 850 - 3,900 cells/uL [facility] MONOCYTE ABSOLUTE 531 200 - 950 cells/uL [facility] EOSINOPHIL ABSOLUTE 493 15 - 500 cells/uL [facility] BASOPHILS ABSOLUTE 54 0 - 200 cells/uL [facility] NEUTROPHIL 56.8 % [facility] LYMPHOCYTES 29.2 % [facility] MONOCYTE 6.9 % [facility] EOSINOPHILS 6.4 % [facility] BASOPHILS 0.7 % [facility] Comment: Test Performed at: [facility] [address] [place] [address] Francisco Haley MD Blood 08/04/2024 9:33 AM DIRECTOR CARDIOVASCULAR 08/05/2024 3:41 AM DIRECTOR CARDIOVASCULAR Marianela Underwood ANP HEMATOLOGY ORDERABLES Final Result Performing Organization Address [facility] Co de Phone Number [facility] [phone] [facility] [address] [place] [phone] * TSH (08/04/2024 9:33 AM DIRECTOR CARDIOVASCULAR) TSH 2.48 mIU/L [facility] Comment: Reference Range > or = 20 Years 0.40-4.50 Ranges First trimester 0.26-2.66 Second trimester 0.55-2.73 Third trimester 0.43-2.91 Test Performed at: [facility] [address] [place] [address] Francisco Haley MD Blood 08/04/2024 9:33 AM DIRECTOR CARDIOVASCULAR 08/05/2024 3:41 AM DIRECTOR CARDIOVASCULAR us Marianela Underwood ANP CHEMISTRY ORDERABLES Final R esult Performing Organization Address City/[facility]/ZIP Co de Phone Number [facility] [phone] [facility] [address] [place] [phone] * LIPID PANEL (08/04/2024 9:33 AM DIRECTOR CARDIOVASCULAR) CHOLESTEROL 168 <200 mg/dL [facility] HDL 70 > OR = 50 mg/dL [facility] TRIGLYCERIDE 56 <150 mg/dL [facility] LDL CALCULATED 84 mg/dL (calc) [facility] Comment: Reference range: <100 Desirable range <100 mg/dL for primary prevention; <70 mg/dL for patients with CHD or diabetic patients with > or = 2 CHD risk factors. LDL-C is now calculated using the Adelso calculation, which is a validated novel method providing better accuracy than the Friedewald equation in the estimation of LDL-C. Mayank SS et al. SHEELA. 2013;310(19): 5271-6678 (http://education.[facility]/faq/DPM399) CHOL/HDL RATIO 2.4 <5.0 (calc) [facility] NON-HDL CHOLESTEROL 98 <130 mg/dL (calc) [facility] Comment: For patients with diabetes plus 1 major ASCVD risk factor, treating to a non-HDL-C goal of <100 mg/dL (LDL-C of <70 mg/dL) is considered a therapeutic option. Test Performed at: [facility] [address] [facility] [place] [address] Francisco Haley MD Blood 08/04/2024 9:33 AM DIRECTOR CARDIOVASCULAR 08/05/2024 3:41 AM DIRECTOR CARDIOVASCULAR us Marianela Underwood [facility] CHEMISTRY ORDERABLES Final R esult [facility] [phone] [facility] [address] [place] [address] * (ABNORMAL) COMPREHENSIVE METABOLIC PANEL (08/04/2024 9:33 AM DIRECTOR CARDIOVASCULAR) Pathologist [facility] GLUCOSE 89 65 - 99 mg/dL [facility] Comment: Fasting reference interval BUN 12 7 - 25 mg/dL [facility] CREATININE 1.04(H) 0.50 - 0.96 mg/dL [facility] GFR 75 > OR = 60 mL/min/1.7 3m2 [facility] BUN/CREAT RATIO 12 6 - 22 (calc) [facility] SODIUM 137 135 - 146 mmol/L [facility] POTASSIUM 3.9 3.5 - 5.3 mmol/L [facility] CHLORIDE 105 98 - 110 mmol/L [facility] CO2 25 20 - 32 mmol/L [facility] CALCIUM 8.9 8.6 - 10.2 mg/dL [facility] TOTAL PROTEIN 6.4 6.1 - 8.1 g/dL [facility] ALBUMIN 4.0 3.6 - 5.1 g/dL [facility] GLOBULIN 2.4 1.9 - 3.7 g/dL (calc) [facility] ALBUMIN/GLOBULIN RATIO 1.7 1.0 - 2.5 (calc) [facility] BILIRUBIN TOTAL 0.6 0.2 - 1.2 mg/dL [facility] ALKALINE PHOSPHATASE 37 31 - 125 U/L [facility] AST 27 10 - 30 U/L [facility] ALT 18 6 - 29 U/L [facility] Comment: Test Performed at: [facility] [address] [place] [address] Francisco Haley MD Blood 08/04/2024 9:33 AM DIRECTOR CARDIOVASCULAR 08/05/2024 3:41 AM DIRECTOR CARDIOVASCULAR us Marianela Underwood ANP CHEMISTRY ORDERABLES Final R esult [facility] [phone] [facility] [address] [place] [phone] from Last 3 Months Insurance ALLEGIAN OPEN ACCESS ALLEGIANCE OPEN ACCESS
--- OUTSIDE RECORDS SUMMARY | 2024-08-06 17:14 | XMS_ITS | Encounter Summary ---
Author Organization [facility] Care Team Providers Care Doughnut Icer Machine Name Role Phone No, Physician Primary Care Provider [phone] Encounter Details Date Type Department Care Team (Latest Contact Info) Description 07/29/2018 Orders Only [facility]INCON[facility] ProviderKhanh MD [address] [place] [address] Social History Tobacco Use Types Packs/Day Years Used Date Smoking Tobacco: Never Assessed Comments Unknown Sex and Gender Information Value Date Recorded Sex Assigned at Not on file Legal Sex Female 9:08 PM ENVELOPE MAKER Gender Identity Not on file Sexual Orientation Not on file documented as of this encounter Plan of Treatment Not on file documented as of this encounter Procedures Procedure Name Priority Date/Time Associated Diagnosis Comments CARDIOLOGY REPORT 08/15/2018 12: 00 AM CDT documented in this encounter Results * CARDIOLOGY REPORT (08/15/2018 12:00 AM CDT) Anatomical Region Laterality Modality Other Narrative 08/15/2018 12:00 AM CDT Ordered by an unspecified provider. Historical Provider [facility] ZHANNA CARRASCO Final Result documented in this encounter Visit Diagnoses Not on filedocumented in this encounter Additional Health Concerns Infection Onset Date Last Indicated Resolved Time MRSA Comment:thinks 5 years ago when in [place] had iv antibiotics for days 03/12/2019 03/11/20192020 5:00 AM CDT documented as of this encounter Care Teams Doughnut Icer Machine Relationship Specialty Start Date End Date No, Physician PCP - General 10/05/19 documented as of this encounter
--- OUTSIDE RECORDS SUMMARY | 2024-08-06 17:14 | XMS_ITS ---
Author Organization [facility] [employer] [facility] Address [facility] [facility] [address] [place] [address] Care Team Providers Care Tubular Riveter Name Role Phone Taya Robertson [phone] REASON FOR VISIT Appointment Social History Sex Assigned At : Social History Observation Description Sex Assigned At Unknown Encounters Encounter Location Date [facility] [address] [facility] [address] [place] [address] 08/01/2024 Taya Robertson Plan Of Treatment No Information Progress Notes * JENIFER GREGORY EDOB:1995 (28 yo F)Acc No.[id number]:08/01/2024 Patient: Shayne SUMNER JENIFER Kilgore :1995 A ge:28 Y S ex:Female Address:[address] [place], [place] [address], [place], [address] * true * Date: Generated for See bradford/Laurog/eTransmitting on: 0 08/06/2024 03:32 PM TRADE SHOW MANAGER
--- OUTSIDE RECORDS SUMMARY | 2024-08-06 17:14 | XMS_ITS | Referral Summary ---
Author Organization [facility] Address [address] [facility] [place] [address] Care Team Providers Care Earth Observations Chief Scientist Name Role Phone CruzZee glass PREETHI Primary Care Provider + Source Comments [facility],non-[facility] Affiliates and Associated Physician Practices is amultiple site organization consisting of ambulatory clinics and hospital sitesin [place], [place], [place] and [place]. This disclosure is being madepursuant to the Care Everywhere program and may not contain all information available regarding this patient. Last updated 18.[facility] Encounters Date Type Department Care Team Description 07/17/2024 Telephone [facility] [address] [place] [phone] Jabari Thornton APRN-CNP Care Management 07/08/2024 Refill [facility] [address] [place] [phone] Jabari Thornton APRN-CNP Refill Request from Last 3 Months Allergies Active Allergy Reactions Criticality Noted Date Comments Seasonal Cough,Eye Discomfort ,Eye Itching,Eye Redness,Headache,Itching,Shortness of Breath,Wheezing High 10/26/2006 Medications * Be aware that medications may not be up to date on this document. Alwaysverify current medications with the patient. Medication Sig Dispensed Refills Start Date End Date Status rizatriptan (Maxalt) 5 MG tabletIndications: Intractable migraine with status migrainosus, unspecified migraine type TAKE 1 TABLET BY MOUTH 1 TIME AT EARLY ONSET OF MIGRAINE. OCTOBER REPEAT 1 TIME AFTER 2 HOURS NEEDED 9 tablet 11 09/26/2023 Active fluticasone propionate (Flonase) 50 MCG/ACT nasal spray SHAKE LIQUID AND USE 1 SPRAY IN EACH NOSTRIL TWICE DAILY 01/05/2023 Active hydrocortisone (Hytone) 1 % ointment APPLY TOPICALLY TO THE AFFECTED AREA THREE TIMES DAILY NEEDED FOR RASH 09/17/2023 Active Mirena, 52 MG, 20 MCG/DAY IUD 06/11/2023 Active acetaZOLAMIDE ER 12hr (Diamox Sequel) 500 MG capsule Take 1 (one) capsule by mouth 2 times daily 60 capsule 11 01/01/2024 12/31/2024 Active doxycycline hyclate 100 MG tablet 02/07/2024 Active buPROPion XL 24hr (Wellbutrin-XL) 300 MG tablet 1 tablet in the morning Orally Once a day for 90 days Active sertraline (Zoloft) 50 MG tablet 1.5 tablet Oral Once a day for 90 days Active traZODone (Desyrel) 50 MG tablet 1 tablet at bedtime as needed Oral Once a day for 90 days 10/03/2023 Active albuterol HFA (Proventil; Ventolin; Proair) 108 (90 Base) MCG/ACT inhaler 03/04/2024 Active Levonorgestrel (MIRENA, 52 MG, IU) MIRENA 21 MCG/24 HR (UP TO 8 YEARS) 52 MG INTRAUTERINE DEVICE 10/03/2023 Active valACYclovir (Valtrex) 500 MG tablet Oral 10/03/2023 Active fluticasone diskus (Flovent Diskus) 50 MCG/ACT inhaler Inhalation 10/03/2023 Active topiramate (Topamax) 25 MG tabletIndications: Intractable migraine with status migrainosus, unspecified migraine type TAKE 1 TABLET BY MOUTH TWICE DAILY 180 tablet 3 04/14/2024 Active Active Problems No known active problems Social [...] Mass Index 26.5 01/01/2024 6:54 AM CDT Plan of Treatment Not on file Care Teams Earth Observations Chief Scientist Relationship Specialty Start Date End Date Zee Cruz APRN-DEPOSITING MACHINE OPERATOR [address] [place] [phone] PCP - General 09/13/23
--- OUTSIDE RECORDS SUMMARY | 2024-08-06 17:14 | XMS_ITS ---
Author Organization [facility] Address [address] [place] [address] Care Team Providers Care Clinical Nurse Name Role Phone Taya Robertson Unavailable [phone] Allergies No Known Allergies REASON FOR VISIT follow up Medications Medication SIG (Take, Route, Frequency, Duration) Notes Start Date End Date Status Sertraline HCl 50 MG 1.5 tablet Oral Once a day for 90 days Active Topiramate 25 MG Oral 10/03/2023 Un known LIDOCAINE/ANTACID/WAL -DRYL 111 *Reorder from [facility] for eRx and Interaction Alerts* 10/03/2023 Unknown OXcarbazepine 600 MG Oral 10/03/2023 Unknown traZODone HCl 50 MG 1 tablet at bedtime as needed Oral Once a day for 90 days 10/03/2023 Active buPROPion HCl ER (XL) 300 MG 1 tablet in the morning Orally Once a day for 90 days Active Fluticasone Propionate Diskus 50 MCG/ACT Inhalation *Reorder from [facility] for eRx and Interaction Alerts* 10/03/2023 Unknown Gabapentin 100 MG Oral 10/03/2023 U nknown Rizatriptan Benzoate 5 MG Oral 10/03/2023 Unknown MIRENA 21 MCG/24 HR (UP TO 8 YEARS) 52 MG INTRAUTERINE DEVICE *Reorder from [facility] for eRx and Interaction Alerts* 10/03/2023 Unknown hydrOXYzine HCl 10 MG 1 tablet Orally three times a day for 30 days 12/05/2023 Active Social History Tobacco Use: Social History [...] past year? Monthly or less (1 point) Encounters Encounter Location Date Provider Diagnosis [facility] [address] [address] 02/27/2024 Taya Robertson Major depressive disorder, recurrent severe without psychotic features F33.2 and Generalized anxiety disorder F41.1 Assessments Encounter Date Diagnosis (ICD Code) Assessment Notes Treatment Notes Treatment Clinical Notes Section Notes 02/27/2024 Major depressive disorder, recurrent severe without [...] 02/27/2024 Generalized anxiety disorder (ICD-10 - F41.1) 02/27/2024 Other Increase Wellbutrin to 300mg for mood Patient educated on all medications including potential benefits, side effects, risks. Educated on proper dosing schedule and importance of compliance. Discussed adding magnesium glycinate for sleep support, limiting simple carbs before bedtime. Plan Of Treatment Medication Medication Name Sig Start Date Stop Date Notes Sertraline HCl 50 MG 1.5 tablet Oral Onc e a day for 90 days traZODone HCl 50 MG 1 tablet at bedtime as needed Oral Once a day for 90 days 10/03/2023 buPROPion HCl ER (XL) 300 MG 1 tablet in the morning Orally Once a day for 90 days Treatment Notes Assessment Notes Major depressive disorder, r ecurrent severe without psychotic features Common side effects to SSRI medications include [...] side effects persist, please contact the office. Other Increase Wellbutrin to 300mg for mood Patient educated on all medications including potential benefits, side effects, risks. Educated on proper dosing schedule and importance of compliance. Discussed adding magnesium glycinate for sleep support, limiting simple carbs before bedtime. Next Appt Details Follow Up: 4 Weeks, Reason: medication follow up Progress Notes * JENIFER GREGORY EDOB:1995 (28 yo F)Acc No.[id number]:02/27/2024 Patient: JENIFER ALVAREZ Provider: TANJA MEYERHNP :1995 A ge:28 Y S ex:Female Date:02/27/2024 Address:[address] [place] [address], [address] [id number] Subjective: * Chief Complaints: * 1 . Follow up. * HPI: D epression Screening: FERNANDA-7 (2018 Edition) F eeling nervous, anxious, or on edge?Nearly every day, N ot being able to stop or control worrying N early every day, W orrying too much about different things N early every day, T rouble relaxing N early every day, B eing so restless that it is hard to sit still S everal days, B ecoming easily annoyed or irritable M ore than half the days, F eeling afraid as if something awful might happen N early every day, I f you checked any problems, how difficult have they made it for you to do your work, take care of things at home, or get along with other people? N ot difficult at all, I nterpretation of Total ( 10 to 14) Moderate. D epression screening: PHQ-9 L ittle interest or pleasure in doing things N early every day, F eeling down, depressed, or hopeless N early every day, T rouble falling or staying asleep, or sleeping too much N early every day, F eeling tired or having little energy N early every day, P oor appetite or overeating N early every day, F eeling bad about yourself or that you are a failure, or have let yourself or your family down N early every day, T rouble concentrating on things, such as reading the newspaper or watching television?More than half the days, M oving or speaking so slowly that other people could have noticed; or the opposite, being so fidgety or restless that you have been moving around a lot more than usual N ot at all, T houghts that you would be better off or of hurting yourself in some way N ot at all, I nterpretation M oderate Depression. I ntervention D epression Screening Findings P ositve, F ollow-Up for Depression M anagement of mental health treatment, S uicide Risk Assessment Performed cssr negative , A dditional Evaluation for Depression P sychiatric interview and evaluation, N neda of the standardized tool used for adult depression screening: P atient Health Questionnaire (PHQ-9). H istory of Presenting Problem: Anxiety w ith excessive worry, with panic attacks. D epression R ates depression 8/10 with 10 being most severe. . M ood lability n o hx of sonu. P sychosis n o hx of psychosis. S uicidal ideation D enies . P sychotherapy A my. Here for follow up. Sertraline increased last apt to 75mg daily. Reports the doctors discovered that she has idiopathic intracranial hypertension after the spinal tap and MRI. Thinks it is possibly caused by her Mirana, planning to get this taken out. Mentally, reports I have been really down lately . Continues to have stress at work. Feeling hopeless or helpless, no suicidal thoughts. Energy and motivation are low. Anxiety its a little better . Has had three panic attacks since last apt, overall has lessened in intensity. Reports she has been eating more, has gained about 15 pounds recently. Sleep is poor, waking up frequently, getting about 4-5 hours nightly. P ast Psychiatric Hospitalizations: Social hx: Lives with boyfriend of three years. No children. 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 Mother 2019. Medical hx: idiopathic intracranial hypertension Previous Psychiatric History previous admissions/IOP/PHP: none h istory of SI/SA: denies f amily psychiatric history: mother-bipolar disorder; sister-on medications, unsure of diagnosis. previously trialled medications: sertraline, trazodone substance use history: cannabis daily to help treat anxiety- It is my escape from everything . * ROS: G eneral / Constitutional: Patient denies h eadache, lightheadedness. P atient complains of c hange in appetite, weight gain. C yolanda S HPI for details. ? P sychiatric: Patient denies s uicidal thoughts. P atient complains of a nxiety, depressed mood, difficulty sleeping. C yolanda S ee HPI for details. ? * Medical History: P roblems: Generalized anxiety disorder, Insomnia disorder related to another mental disorder, Severe recurrent major depression without psychotic features, ,. * Family History: M other: Depressive disorder , Anxiety disorder , Bipolar disorder . * Social History: T obacco Use: T obacco Control (Standard) T obacco use: N onsmoker. M igrated Social History: M igrated Social History: Alcohol Intake: Occasional 10/03/2023,Tobacco Years: Never smoker 10/03/2023. D rug/Alcohol: A DOLORES-C (Standard) D id you have a drink containing alcohol in the past year? Y es,?How often did you have six or more drinks on one occasion in the past year? 2 to 4 times a month (2 points), H ow many drinks did you have on a typical day when you were drinking in the past year? 3 or 4 drinks (1 point), H ow often did you have a drink containing alcohol in the past year? M onthly or less (1 point), I nterpretation P ositive. * Medications: T aking traZODone HCl 50 MG Tablet 1 tablet at bedtime as needed Oral Once a day , Taking hydrOXYzine HCl 10 MG Tablet 1 tablet Orally three times a day , Taking buPROPion HCl ER (XL) 150 MG Tablet Extended Release 24 Hour 1 tablet in the morning Orally Once a day , Taking Sertraline HCl 50 MG Tablet 1.5 tablet Oral Once a day , Unknown Gabapentin 100 MG Capsule Oral , Unknown Fluticasone Propionate Diskus 50 MCG/ACT Aerosol Powder Breath Activated Inhalation , Notes to Pharmacist: *Reorder from [facility] for eRx and Interaction Alerts*, Unknown MIRENA 21 MCG/24 HR (UP TO 8 YEARS) 52 MG INTRAUTERINE DEVICE , Notes to Pharmacist: *Reorder from [facility] for eRx and Interaction Alerts*, Unknown Rizatriptan Benzoate 5 MG Tablet Oral , Unknown LIDOCAINE/ANTACID/WAL-DRYL 111 , Notes to Pharmacist: *Reorder from [facility] for eRx and Interaction Alerts*, Unknown Topiramate 25 MG Tablet Oral , Unknown OXcarbazepine 600 MG Tablet Oral , Medication List reviewed and reconciled with the patient * Allergies: N .K.D.A. Objective: * Vitals: * Examination: P sychiatry: Appearance: w ell-groomed. Abnormal body movements: n one . Affect / mood: d epressed, anxious . Attention: g ood. Attitude: c ooperative . Homicidal ideation: n one. Suicidal ideation: n one. Degree of awareness of surroundings: w ithin normal limits.? Delusions: n o . Hallucinations: n o . Impulse control: g ood . Insight: g ood. Judgement: g ood . Orientation: a wake, alert and oriented x 3 . Perceptual disorders: n o perceptual disorder noted. Psychomotor activity: w ithin normal range. Speech / language: n ormal rate, volume, and articulation (RVR) . Thought content: a ppropriate. Thought process: i ntact . Assessment: * Assessment: 1. M ajor depressive disorder, recurrent severe without psychotic features - F33.2 (Primary)? 2. G eneralized anxiety disorder - F41.1 Plan: * Treatment: 2. O thers Notes: Increase Wellbutrin to 300mg for mood Patient educated on all medications including potential benefits, side effects, risks. Educated on proper dosing schedule and importance of compliance. Discussed adding magnesium glycinate for sleep support, limiting simple carbs before bedtime. * Procedure Codes: 9 6127 BEHAV ASSMT W/SCORE & DOCD/STAND INSTRUMENT, G2211 VISIT COMPLEXITY INHERENT TO ONGOING CARE RELATED TO A PATIENT'S SINGLE, SERIOUS CONDITION OR A COMPLEX CONDITION, G8431 CLIN DEPRESSION SCREEN DOC * Preventive Medicine: Screenings: D epression screening H ave you had a recent depression screening??Yes, D ate of depression screenin 02/27/2024. * Follow Up: 4 Weeks (Reason: medication follow up) * Billing Information: * Visit Code: 00143 OFFICE OUTPATIENT VISIT 25 MINUTES DETAILED HISTORY AND EXAM/MODERATE MEDICAL DECISION MAKING. * Procedure Codes: 91008 BEHAV ASSMT W/SCORE & DOCD/STAND INSTRUMENT. G2211 VISIT COMPLEXITY INHERENT TO ONGOING CARE RELATED TO A PATIENT'S SINGLE, SERIOUS CONDITION OR A COMPLEX CONDITION. G8431 CLIN DEPRESSION SCREEN DOC. * Sign off status: Completed true * Provider: ROWDY MEYER Date: 0 02/27/2024 Generated for See bradford/Guillermina/Rolandoitting on: 0 08/06/2024 03:32 PM SLOT FLOOR PERSON History and Physical Notes * HPI (History of Present Illness) Category Sub-Category Detail Notes Category Not es History of Presenting Problem Anxiety with excessive worry, with p anic attacks Here for follow up. Sertraline increased last apt to 75mg daily. Reports the doctors discovered that she has idiopathic intracranial hypertension after the spinal tap and MRI. Thinks it is possibly caused by her Mirana, planning to get this taken out. Mentally, reports I have been really down lately . Continues to have stress at work. Feeling hopeless or helpless, no suicidal thoughts. Energy and motivation are low. Anxiety its a little better . Has had three panic attacks since last apt, overall has lessened in intensity. Reports she has been eating more, has gained about 15 pounds recently. Sleep is poor, waking up frequently, getting about 4-5 hours nightly. Depression Rates depression 8/1 0 with 10 being most severe. Suicidal ideation Denies Psychosis no hx of psychosis Mood lability no hx of sonu Psychotherapy Macy Past Psychiatric Hospitalizations Social hx: Lives with boyfriend of three years. No children. 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 Mother 2019. Medical hx: idiopathic intracranial hypertension Previous Psychiatric History previous admissions/IOP/PHP: none history of SI/SA: denies family psychiatric history: mother-bipolar disorder; sister-on medications, unsure of diagnosis. previously trialled medications: sertraline, trazodone substance use history: cannabis daily to help treat anxiety- It is my escape from everything . Depression screening PHQ-9 Little inte rest or pleasure in doing things: Nearly every day Feeling down, depressed, or hopeless: Ne mayelin every day Trouble falling or staying asleep, or sl eeping too much: Nearly every day Feeling tired or having little energy: N early every day Poor appetite or overeating: Nearly ever y day Feeling bad about yourself o r that you are a failure, or have let yourself or your family down: Nearly every day Trouble concentrating on thi ngs, such as reading the newspaper or watching television: More than half the days Moving or speaking so slowly that other people could have noticed; or the opposite, being so fidgety or restless that you have been moving around a lot more than usual: Not at all Thoughts that you would be b kevin off or of hurting yourself in some way: Not at all Interpretation: Moderate Depression Intervention Depression Screening Findings: P ositve Follow-Up for Depression: Management of mental health treatment Suicide Risk Assessment Performed: cssr negative Additional Evaluation for De pression: Psychiatric interview and evaluation Name of the standardized too l used for adult depression screening:: Patient Health Questionnaire (PHQ-9) Depression Screening FERNANDA-7 (2018 Edition) Feelin g nervous, anxious, or on edge: Nearly every day Not being able to stop or control worryi ng: Nearly every day Worrying too much about different things : Nearly every day Trouble relaxing: Nearly every day Being so restless that it is hard to sit still: Several days Becoming easily annoyed or irritable: Mo re than half the days Feeling afraid as if something awful stevo ht happen: Nearly every day If you checked any problems, how difficult have they made it for you to do your work, take care of things at home, or get along with other people?: Not difficult at all Interpretation of Total: (10 to 14) Mode rate Examination Category Sub-Category Detail Notes Category Not es Psychiatry Appearance: well-groomed Attitude: cooperative Psychomotor activity: within normal rang e Abnormal body movements: none Attention: good Degree of awareness of surroundings: wit hin normal limits Orientation: awake, alert and karuna ented x 3 Affect / mood: depressed, anxious Speech / language: normal rate, volume, and articulation (RVR) Insight: good Judgement: good Thought process: intact Thought content: appropriate Perceptual disorders: no perceptual diso rder noted Suicidal ideation: none Homicidal ideation: none Impulse control: good Delusions: no Hallucinations: no
--- OUTSIDE RECORDS SUMMARY | 2024-08-06 17:14 | XMS_ITS ---
Author Organization [facility] [employer] [facility] Address [address] [place] [address] Care Team Providers Care Fabric Awning Repairer Name Role Phone Ailyn, Taya To [phone] REASON FOR VISIT Reschedule appointment Social History Sex Assigned At : Social History Observation Description Sex Assigned At Unknown Encounters Encounter Location Date Provider Diagnosis [facility] [address] [place] [address] 03/26/2024 Taya Robertson Plan Of Treatment No Information Progress Notes * JENIFER GREGORY EDOB:1995 (28 yo F)Acc No.[id number]:03/26/2024 Patient: Shayne SUMNER JENIFER Kilgore :1995 A ge:28 Y S ex:Female Address:[address] [place], [place] [address], [place], [address] * true * Date: Generated for See bradford/Lauorg/eTransmitting on: 0 08/06/2024 03:31 PM SLOT AMBASSADOR
--- OUTSIDE RECORDS SUMMARY | 2024-08-06 17:14 | XMS_ITS | Referral Summary ---
Author Organization [facility] Address [address] [place] [address] Care Team Providers Care Communications Writer Name Role Phone No, Physician Primary Care Provider [phone] Encounters Date Type Department Care Team Description 05/20/2024 4:41 PM MIXED CROP FARMER - 05/20/2024 11:59 PM MIXED CROP FARMER Hospital Encounter [facility] ([facility]) [address] [place] [phone] Discharge Disposition: Discharge to home or self care 05/20/2024 4:39 PM MIXED CROP FARMER - 05/20/2024 11:59 PM MIXED CROP FARMER Hospital Encounter [facility] ([facility]) [address] [place] [phone] Discharge Disposition: Discharge to home or self care 05/20/2024 4:37 PM MIXED CROP FARMER - 05/20/2024 11:59 PM MIXED CROP FARMER Hospital Encounter [facility] ([facility]) [address] [place] [address] Discharge Disposition: Discharge to home or self care 05/20/2024 4:36 PM MIXED CROP FARMER - 05/20/2024 11:59 PM MIXED CROP FARMER Hospital Encounter [facility] ([facility]) [address] [place] [address] Discharge Disposition: Discharge to home or self care 05/15/2024 10:52 AM MIXED CROP FARMER - 05/15/2024 11:59 PM MIXED CROP FARMER Hospital Encounter [facility] ([facility]) [address] [place] [address] Discharge Disposition: Discharge to home or self care 05/15/2024 10:50 AM MIXED CROP FARMER - 05/15/2024 11:59 PM MIXED CROP FARMER Hospital Encounter [facility] ([facility]) [address] [place] [phone] Discharge Disposition: Discharge to home or self care 05/15/2024 10:41 AM MIXED CROP FARMER - 05/15/2024 11:59 PM MIXED CROP FARMER Hospital Encounter [facility] ([facility]) [address] [place] [address] Discharge Disposition: Discharge to home or self care 05/14/2024 3:30 PM MIXED CROP FARMER Imaging Exam [facility] [address] [place] [phone] 05/14/2024 3:10 PM MIXED CROP FARMER Imaging Exam [facility] [address] [place] [phone] 05/14/2024 3:20 PM MIXED CROP FARMER Imaging Exam [facility] [address] [place] [phone] 05/14/2024 2:30 PM MIXED CROP FARMER Office Visit [facility] [address] [place] [phone] Lenin Lopez MD Chronic migraine w/o aura w/o status migrainosus, not intractable (Primary Dx); Pseudopapilledema of both optic discs from Last 3 Months Allergies Active Allergy [...] by mouth nightly as needed for sleep 4 Active gabapentin (NEURONTIN) 100 mg capsule Take [...] discs 05/15/2024 Abnormal uterine bleeding (AUB) 05/30/2021 Social History Tobacco Use Types Packs/Day Years Used Date Smoking Tobacco: Never Smokeless Tobacco: Never Alcohol Use Standard Drinks/Week Comments Yes 0 (1 standard drink = 0.6 oz pur e alcohol) Comments No Sex and Gender Information Value Date Recorded Sex Assigned at Not on file Legal Sex Female 9:08 PM MIXED CROP FARMER Gender Identity Not on file Sexual Orientation Not on file Last Filed Vital Signs Vital Sign Reading Time Taken Comments Blood Pressure 112/76 05/26/2021 10:44 AM MIXED CROP FARMER Pulse 76 05/03/2021 8:40 PM MIXED CROP FARMER Temperature 36.8 C (98.2 F) 05/03/2021 3:57 PM MIXED CROP FARMER Respiratory Rate 18 05/03/2021 8:40 PM MIXED CROP FARMER Oxygen Saturation 100% 05/03/2021 8:40 PM MIXED CROP FARMER Inhaled Oxygen Concentration - - Weight 106.6 kg (235 lb) 05/26/2021 10:44 AM MIXED CROP FARMER Height 180.3 cm (5' 10.98 ) 05/26/2021 10:44 AM MIXED CROP FARMER Body Mass Index 32.79 05/26/2021 10:44 AM MIXED CROP FARMER Plan of Treatment Not on file Procedures Procedure Name Priority Date/Time Associated Diagnosis Comments NEURO CT OUTSIDE REFERENCE Routine 05/20/2024 4:41 PM MIXED CROP FARMER NEURO MR OUTSIDE REFERENCE Routine 05/20/2024 4:39 PM MIXED CROP FARMER XR TRANSFER OF OUTSIDE FILMS Routine 05/20/2024 4:37 PM MIXED CROP FARMER NEURO MR OUTSIDE REFERENCE Routine 05/20/2024 4:36 PM MIXED CROP FARMER NEURO MR OUTSIDE REFERENCE Routine 05/15/2024 10:52 AM MIXED CROP FARMER NEURO MR OUTSIDE REFERENCE Routine 05/15/2024 10:50 AM MIXED CROP FARMER NEURO MR OUTSIDE REFERENCE Routine 05/15/2024 10:41 AM MIXED CROP FARMER OCT, OPTIC NERVE - OU - BOTH EYES Routine 05/14/2024 3:59 PM MIXED CROP FARMER Pseudopapilledema of both optic discs OCT, RETINA - OU - BOTH EYES Routine 05/14/2024 3:59 PM MIXED CROP FARMER Pseudopapilledema of both optic discs FUNDUS PHOTOS/FAF - OU - BOTH EYES Routine 05/14/2024 2:30 PM MIXED CROP FARMER Pseudopapilledema of both optic discs NEVAREZ VISUAL FIELD - OU - BOTH EYES Routine 05/14/2024 2:30 PM MIXED CROP FARMER Pseudopapilledema of both optic discs from Last 3 Months Results * Neuro CT Outside Reference (05/20/2024 4:41 PM MIXED CROP FARMER) Impressions RAD_PACS_[facility] - 05/20/2024 4:41 PM MIXED CROP FARMER These images are for Reference purposes only and have not been reviewed by [facility]. There will be no report generated by a [facility] Radiologist. Narrative RAD_PACS_[facility] - 05/20/2024 4:41 PM MIXED CROP FARMER EXAMINATION: Images For Reference Purposes Only Lenin Lopez MD IMG CT PROCEDURES Fi nal Result Performing Organization Address [facility] de Phone Number [email or web address] * Neuro MR Outside Reference (05/20/2024 4:39 PM MIXED CROP FARMER) Impressions [facility] - 05/20/2024 4:39 PM MIXED CROP FARMER These images are for Reference purposes only and have not been reviewed by [facility]. There will be no report generated by a [facility] Radiologist. Narrative [facility] - 05/20/2024 4:39 PM MIXED CROP FARMER EXAMINATION: Images For Reference Purposes Only Lenin Lopez MD IMG MRI PROCEDURES F inal Result Performing Organization Address [facility] de Phone Number [email or web address] * XR Outside Reference (05/20/2024 4:37 PM MIXED CROP FARMER) Impressions [facility] - 05/20/2024 4:37 PM MIXED CROP FARMER These images are for Reference purposes only and have not been reviewed by [facility]. There will be no report generated by a [facility] Radiologist. Narrative [facility] - 05/20/2024 4:37 PM MIXED CROP FARMER EXAMINATION: Images For Reference Purposes Only Lenin Lopez MD IMG XR PROCEDURES Fi nal Result Performing Organization Address [facility] de Phone Number [email or web address] * Neuro MR Outside Reference (05/20/2024 4:36 PM MIXED CROP FARMER) Impressions [facility] - 05/20/2024 4:36 PM MIXED CROP FARMER These images are for Reference purposes only and have not been reviewed by [facility]. There will be no report generated by a [facility] Radiologist. Narrative [facility] - 05/20/2024 4:36 PM MIXED CROP FARMER EXAMINATION: Images For Reference Purposes Only Lenin Lopez MD IMG MRI PROCEDURES F inal Result Performing Organization Address [facility] Co de Phone Number [email or web address] * Neuro MR Outside Reference (05/15/2024 10:52 AM MIXED CROP FARMER) Impressions [facility] - 05/15/2024 10:52 AM MIXED CROP FARMER These images are for Reference purposes only and have not been reviewed by [facility]. There will be no report generated by a [facility] Radiologist. Narrative [facility] - 05/15/2024 10:52 AM MIXED CROP FARMER EXAMINATION: Images For Reference Purposes Only Lenin Lopez MD IM MRI PROCEDURES F inal Result Performing Organization Address [facility] de Phone Number [email or web address] * Neuro MR Outside Reference (05/15/2024 10:50 AM MIXED CROP FARMER) Impressions [facility] - 05/15/2024 10:50 AM MIXED CROP FARMER These images are for Reference purposes only and have not been reviewed by [facility]. There will be no report generated by a [facility] Radiologist. Narrative [facility] - 05/15/2024 10:50 AM MIXED CROP FARMER EXAMINATION: Images For Reference Purposes Only Lenin Lopez MD IMG MRI PROCEDURES F inal Result Performing Organization Address [facility] de Phone Number [email or web address] * Neuro MR Outside Reference (05/15/2024 10:41 AM MIXED CROP FARMER) Impressions [facility] - 05/15/2024 10:41 AM MIXED CROP FARMER These images are for Reference purposes only and have not been reviewed by [facility]. There will be no report generated by a [facility] Radiologist. Narrative [facility] - 05/15/2024 10:41 AM MIXED CROP FARMER EXAMINATION: Images For Reference Purposes Only Lenin Lopez MD IMG MRI PROCEDURES F inal Result [facility] * OCT, Optic Nerve - OU - Both Eyes (05/14/2024 3:59 PM MIXED CROP FARMER) RNFL OS 95 micrometers CONTINUUM RNFL OD 99 micrometers CONTINUUM Anatomical Region Laterality Modality Head Other Narrative 05/15/2024 9:42 AM MIXED CROP FARMER Right Eye Reliability was good. Average RNFL thickness 99 micrometers. Left Eye Reliability was good. Average RNFL thickness 95 micrometers. Notes No signs of thinning or thickening both eyes (OU) Dali Wilkerson MD OPHTH TOMOGRAPHY Final Resu lt * OCT, Retina - OU - Both Eyes (05/14/2024 3:59 PM MIXED CROP FARMER) Central Macular Thickness OS 266 mircometers CONTINUUM Central Macular Thickness OD 270 micrometers CONTINUUM Anatomical Region Laterality Modality Head Other Narrative 05/15/2024 9:42 AM MIXED CROP FARMER Right Eye Quality was good. Macular thickness was 270 micrometers. Left Eye Quality was good. Macular thickness was 266 mircometers. Notes Normal OCT mac OU GCC without thinning OU; 81/80 Dali Wilkerson MD OPHTH TOMOGRAPHY Final Resu lt * Fundus Photos/FAF - OU - Both Eyes (05/14/2024 2:30 PM MIXED CROP FARMER) Anatomical Region Laterality Modality Head Fundus Photograp hy Narrative 05/15/2024 9:42 AM MIXED CROP FARMER Right Eye Quality was good. Left Eye Quality was good. Notes OD crowded optic disc with no edema or pallor, temporal retinal tear with surrounding laser barricade OS crowded optic discs with no edema or pallor Fundus auto fluorescence photography showed no evidence of optic disc drusen in either eye. Dali Wilkerson MD OPHTH PHOTOGRAPHY Final Res ult * Nevarez Visual Field - OU - Both Eyes (05/14/2024 2:30 PM MIXED CROP FARMER) Pattern Deviation OS 1.73 CONTINUUM Pattern Deviation OD 1.17 CONTINUUM Mean Deviation OS -1.06 CONTINUUM Mean Deviation OD -1.71 CONTINUUM Anatomical Region Laterality Modality Head Other Narrative 05/15/2024 9:41 AM MIXED CROP FARMER Right Eye Fixation was good. Cooperation was good. Reliability was good. Mean Deviation was -1.71. Pattern Deviation was 1.17. Left Eye Fixation was good. Cooperation was good. Reliability was good. Mean Deviation was -1.06. Pattern Deviation was 1.73. Notes Full OU Dali Wilkerson MD OPH VISUAL FIELD Final Re sult from Last 3 Months Insurance [facility] [employer]IGMARY[facility]UY ALLEGIANCE Care Teams Communications Writer Relationship Specialty Start Date End Date No, Physician PCP - General 10/05/19
--- OUTSIDE RECORDS SUMMARY | 2024-08-06 17:14 | XMS_ITS | Clinical Summary ---
Author Organization [facility] Address [address] [place] [address] Care Team Providers Care Panel Installer Name Role Phone Zee Cruz BRAND RECORDER-OBSERVATORY DIRECTOR Primary Care Provider + Source Comments [facility],non-owned Affiliates and Associated Physician Practices is amultiple site organization consisting of ambulatory clinics and hospital sitesin [place], [place], [place] and [place]. This disclosure is being madepursuant to the Care Everywhere program and may not contain all information available regarding this patient. Last updated 18.[facility] Allergies Active Allergy Reactions Criticality Noted Date [...] Active Active Problems No known active problems Encounters Date Type Department Care Team Description 07/17/2024 Telephone [facility] - Neurology [address] [place] [phone] Jabari Thornton APRN-CNP Care Management 07/08/2024 Refill [facility] [address] [place] [phone] Jabari Thornton APRN-CNP Refill Request from Last 3 Months Family History Medical History Relation Name Comments Blindness Neg Hx Cataract Neg Hx Glaucoma Neg Hx Macular Degeneration Neg Hx Social History Tobacco Use Types Packs/Day Years [...] 01/01/2024 6:54 AM CDT Plan of Treatment Health Maintenance Due Date Last Done Comments PAP SMEAR 1995 HIV SCREENING 08/20/2010 HEPATITIS C SCREENING 08/16/2013 DTAP/TDAP/TD VACCINES (1 - Tdap) 08/20/2014 HEPATITIS B VACCINE (1 of 3 - 19+ 3-dose series) 08/20/2014 COVID-19 VACCINE (2023-2 5 season) 2024 04/22/2021, 04/01/2021 INFLUENZA VACCINE (#1) 2024 DEPRESSION SCREENING 06/04/2024 ZOSTER VACCINE (1 of 2) 08/20/2045 HIB VACCINE Aged Out No longer eligi ble based on patient's age to complete this topic HPV VACCINE Aged Out No longer eligi ble based on patient's age to complete this topic MENINGOCOCCAL (Group B) VACCINE Aged Out No longer eligible b ased on patient's age to complete this topic MENINGOCOCCAL VACCINE Aged Out No harshil nilesh eligible based on patient's age to complete this topic PNEUMOCOCCAL VACCINE Aged Out No long er eligible based on patient's age to complete this topic Care Teams Panel Installer Relationship Specialty Start Date End Date Zee Cruz APRN-CNP [address] [place] [phone] PCP - General 09/13/23
[2024-08-06 17:58] LABS: Hemoglobin A1C 5.3 % (<5.7)
[2024-08-06 18:08] LABS: Beta HCG Quantitative < 2.39 mIU/ML
[2024-08-07 08:04] LABS: FSH 3.1 mIU/mL; Prolactin 17.7 ng/mL
[2024-08-07 14:33] LABS: Insulin Level Total 6.6 uIU/mL
== END 2024-08-06 15:30 | disposition home or self-care (01) ==
PROVIDERS: PCP Nurse Practitioner Family; Visit Provider Obstetrics & Gynecology
DX: N91.1 Secondary amenorrhea (principal)
CPT/HCPCS: 36415; 83001; 83002; 83036; 83498; 83525; 84144; 84146; 84402; 84403; 84443; 84702